=== PATIENT | male | born 1960 | race Caucasian/White ===

== ENCOUNTER → 2018-01-21 | Outpatient (CLI) | payer OTHER ==
[2018-01-21 14:56] VITALS: BP 163/65; PULSE 76; TEMP 98.1; BMI 33.7
--- NOTE | 2018-01-21 16:00 | P.HPBAR ---
Bariatric H&P - History & Physicial H&P Date: 01/21/18 History & Physicial: Visit/CC: four year follow up Patient initial contact: Initial weight: 135.896 kg Initial weight in pounds: 299.60 Height: 5 ft 8 in Initial BMI: 45.5 Last weight: Current weight: 100.698 kg Current weight in pounds: 222.00 Current BMI: 33.7 Floweree body weight (based on NIH guidelines): 69.853 kg Excess body weight loss: 53.2% The patient is a 57 year-old M who presents for Bariatric Assessment. HPI: Last seen Dr. De La Rosa in 2014 had a sleeve. Highest weight was 310 pounds. Lowest weight after surgery is 200 pounds. He is now 222 pounds. No heartburn. She had type II diabetes had stopped. He is now on his blood pressure medications. ABDOMEN: No hernias. PLAN: 1. Two week protein diet. 2. Bariatric lab work. 3. Too much calories and protein Past Medical History Past Medical History: Asthma, GERD/Reflux, Hyperlipidemia, Hypertension, Sleep Apnea/CPAP/BIPAP Additional Past Medical History / Comment(s): Rt femur broken when young, borderline diabetic History of Any Multi-Drug Resistant Organisms: None Reported Past Surgical History: Bariatric Surgery, Cardiac Ablation, Hernia Repair Additional Past Surgical History / Comment(s): For WPW syndrome 1994, bilateral groin hernia repain 1995, surgery on right leg to shorten it, still has plate and screw, gastric sleeve 12/20/2013, thyroid biopsy Past Anesthesia/Blood Transfusion Reactions: No Reported Reaction Past Psychological History: Depression Additional Psychological History / Comment(s): sometimes gets clostraphobic Smoking Status: Former smoker Past Alcohol Use History: None Reported Past Drug Use History: None Reported - Past Family History Daughter(s) Family Medical History: Cancer Mother Family Medical History: Cancer Additional Family Medical History / Comment(s): pancreatic cancer Surgical - Exam Vital Signs Temp Pulse BP 98.1 F 76 163/65 01/21/18 14:47 01/21/18 14:47 01/21/18 14:47 Bariatric Checklist Checklist: Plan: Checklist: EGD: 1. Hiatal hernia: 2. H. Pylori: HgbA1c: Vitamin D: Smoking: Former smoker Primary care physician referral: Psychiatry clearance: Cardiology clearance: Sleep study: Diet journal: VTE risk score: VTE risk level: Rehab needs at discharge:
[2018-01-21 16:33] LABS: HCT 43.8 % (39.0-53.0); MCH 27.1 pg (25.0-35.0); MCV 84.7 fL (80.0-100.0); Mean Platelet Volume 6.6; Platelet Count 193 k/uL (150-450); RBC 5.17 m/uL (4.30-5.90); RDW 12.6 % (11.5-15.5); WBC 9.2 k/uL (3.8-10.6)
[2018-01-21 16:41] LABS: Partial Thromboplastin Time 23.4 sec (22.0-30.0); Prothrombin Time 10.6 sec (9.0-12.0)
[2018-01-22 03:12] LABS: Albumin 4.4 g/dL (3.80-4.90); Albumin/Globulin Ratio 1.91 (1.20-2.10); Globulin 2.3 g/dL (2.1-3.7); LDL Cholesterol,Calculated 107.2 mg/dL (0.0-131.0); Magnesium 1.9 mg/dL (1.5-2.4); Phosphorus 3.7 mg/dL (2.4-5.1); Potassium 3.3 mmol/L (3.5-5.5); Total Bilirubin 0.4 mg/dL (0.3-1.2); Total Protein 6.7 g/dL (6.2-8.2); VLDL Calculation 29.8 mg/dL (5.00-40.00)
[2018-01-22 03:19] LABS: Iron Saturation 18.41 (15.00-50.00)
[2018-01-22 03:26] LABS: Vitamin D 25 Hydroxy 25.7 ng/mL (30.0-100.0)
[2018-01-22 03:38] LABS: Folate, Serum >24.0 ng/mL
[2018-01-22 03:51] LABS: Parathyroid Hormone Intact 82.6 pg/mL (14.0-72.0)
[2018-01-22 04:55] LABS: Hemoglobin A1C 6.5 % (4.0-6.0)
[2018-01-22 14:04] LABS: Zinc, Serum 77 ug/dL (60-130)
[2018-01-23 06:55] LABS: Vitamin A 54 ug/dL (38-106)
[2018-01-23 07:08] LABS: Vitamin B1 85 ug/L (38-122)
== END ==
LOC: BARWHC3 13:55
PROVIDERS: ATTEND Surgery Plastic and Reconstructive Surgery
DX: Z48.815 Encounter for surgical aftercare following surgery on the digestive system (principal); E66.01 Morbid (severe) obesity due to excess calories; E21.1 Secondary hyperparathyroidism, not elsewhere classified; E89.1 Postprocedural hypoinsulinemia; D50.9 Iron deficiency anemia, unspecified; K90.9 Intestinal malabsorption, unspecified; E55.9 Vitamin D deficiency, unspecified; K74.1 Hepatic sclerosis; N19 Unspecified kidney failure; K50.90 Crohn's disease, unspecified, without complications; Z87.891 Personal history of nicotine dependence; Z98.84 Bariatric surgery status
CPT/HCPCS: 84255; 84134; 84425; 80061; 80053; 82607; 82728; 82525; 82746; 83540; 83550; 83735; 84100; 84443; 84590; 84630; 85027; 85610; 85730; 82306; 83970; 83036; 36415; G0463; 99211

== ENCOUNTER 2020-07-14 02:37 | Inpatient (IN) | payer OTHER ==
[2020-07-14] MEDS ORDERED: NITROGLYCERIN SL TABS 0.4 MG TAB SUBLINGUAL PRN (02:57)
[2020-07-14] MEDS ORDERED: ALBUTEROL NEBULIZED 2.5 MG/3 ML INHALATION PRN ×2 (03:00)
--- NOTE | 2020-07-14 07:46 | ED ---
Chest Pain HPI - General Chief Complaint: Chest Pain Stated Complaint: Chest pain Time Seen by Provider: 07/14/20 02:44 Source: patient, EMS Mode of arrival: EMS Limitations: no limitations - History of Present Illness Initial Comments: This patient is a 60-year-old man who presents here as a transfer from [facility]. He had gone there tonight when he had developed some substernal left chest pain while he was using computer. The patient also had some accompanying dyspnea and nausea. When the patient went to the other facility he was started on aspirin, nitroglycerin, heparin, his case was discussed with the radar engineer and he was transferred here with the expectation of having heart catheterization soon. When I interview the patient he is not having any symptoms. His pain has resolved and there is no dyspnea or nausea. MD Complaint: chest pain -: hour(s) Onset: during rest Pain Location: substernal, left chest Pain Radiation: none Severity: moderate Quality: heaviness Consistency: now resolved Improves With: nitroglycerin Worsens With: nothing Anginal Symptoms: nausea, diaphoresis Treatments Prior to Arrival: aspirin, nitroglycerin, oxygen - Related Data Home Medications Medication Instructions Recorded Confirmed NIFEdipine XL [Procardia XL] 60 mg PO DAILY 07/13/13 07/14/20 Albuterol Sulfate [Proair Hfa] 1 - 2 puff INHALATION RT-QID PRN 07/14/20 07/14/20 Disulfiram [Antabuse] 250 mg PO DAILY 07/14/20 07/14/20 Fluticasone Propionate [Flovent 1 - 2 puff INHALATION RT-QID PRN 07/14/20 07/14/20 Hfa 220 mcg] Metoprolol Succinate [Toprol XL] 50 mg PO DAILY 07/14/20 07/14/20 Mirtazapine [Remeron] 30 mg PO HS 07/14/20 07/14/20 hydroCHLOROthiazide [Hydrodiuril] 25 mg PO DAILY 07/14/20 07/14/20 predniSONE See Taper PO DAILY 07/14/20 07/14/20 Previous Rx's Medication Instructions Recorded Atorvastatin Calcium [Lipitor] 40 mg PO HS #0 07/17/20 Losartan Potassium [Cozaar] 100 mg PO DAILY #30 tab 07/17/20 Allergies Allergy/AdvReac Type Severity Reaction Status Date / Time adhesive Allergy Severe blisters Verified 07/14/20 06:44 latex Allergy Dyspnea Verified 07/14/20 06:44 pollen Allergy sneezing/co Uncoded 07/14/20 06:44 ugh Review of Systems ROS Statement: Those systems with pertinent positive or pertinent negative responses have been documented in the HPI. ROS Other: All systems not noted in ROS Statement are negative. Constitutional: Denies: fever, chills Respiratory: Denies: cough, dyspnea Cardiovascular: Reports: chest pain. Denies: palpitations, orthopnea, edema, syncope Gastrointestinal: Denies: abdominal pain, nausea, vomiting Genitourinary: Denies: dysuria, hematuria Skin: Denies: rash Neurological: Denies: headache, weakness, numbness EKG Findings - EKG Results: EKG: sinus rhythm, normal axis, normal ST/T - Blocks, [place], Hypertrophy, ST Abn: AV and intraventricular conduction: right bundle branch block (fixed/intermittent, complete/incomplete) Past Medical History Past Medical History: Asthma, GERD/Reflux, Hyperlipidemia, Hypertension, Sleep Apnea/CPAP/BIPAP Additional Past Medical History / Comment(s): Rt femur broken when young, borderline diabetic History of Any Multi-Drug Resistant Organisms: None Reported Past Surgical History: Bariatric Surgery, Cardiac Ablation, Hernia Repair Additional Past Surgical History / Comment(s): For WPW syndrome 1994, bilateral groin hernia repain 1995, surgery on right leg to shorten it, still has plate and screw, gastric sleeve 12/20/2013, thyroid biopsy Past Anesthesia/Blood Transfusion Reactions: No Reported Reaction Past Psychological History: Depression Smoking Status: Current some day smoker Past Alcohol Use History: Occasional Past Drug Use History: None Reported - Past Family History Daughter(s) Family Medical History: Cancer Mother Family Medical History: Cancer Additional Family Medical History / Comment(s): pancreatic cancer Father Family Medical History: No Reported History Additional Family Medical History / Comment(s): Father lived to be 91 yrs old. General Exam Limitations: no limitations General appearance: alert, in no apparent distress Head exam: Present: atraumatic, normocephalic Eye exam: Present: normal appearance. Absent: scleral icterus, conjunctival injection ENT exam: Present: normal oropharynx Neck exam: Present: normal inspection Respiratory exam: Present: normal lung sounds bilaterally. Absent: respiratory distress, wheezes, rales, rhonchi, stridor Cardiovascular Exam: Present: regular rate, normal rhythm, normal heart sounds. Absent: systolic murmur, diastolic murmur, rubs, gallop GI/Abdominal exam: Present: soft. Absent: distended, tenderness, guarding, rebound, rigid, mass Extremities exam: Present: normal inspection, normal capillary refill. Absent: pedal edema, calf tenderness Back exam: Present: normal inspection. Absent: CVA tenderness (R), CVA tenderness (L) Neurological exam: Present: alert Skin exam: Present: warm, dry, intact, normal color. Absent: rash Course Vital Signs 07/14/20 07/14/20 07/14/20 02:54 04:23 05:52 Temperature 98.2 F Pulse Rate 93 87 71 Respiratory 16 16 16 Rate Blood Pressure 137/92 134/74 O2 Sat by Pulse 99 100 99 Oximetry 07/14/20 07/14/20 06:46 09:28 Temperature Pulse Rate 84 84 Respiratory 17 16 Rate Blood Pressure 167/98 170/130 O2 Sat by Pulse 99 99 Oximetry Disposition Clinical Impression: Acute coronary syndrome Disposition: ADMITTED IP TO THIS HOSP Condition: Good Is patient prescribed a controlled substance at d/c from ED?: No
[2020-07-14] MEDS ORDERED: ALBUTEROL HFA INHALER INHALATION PRN (08:19)
[2020-07-14] MEDS ORDERED: FLUTICASONE 220 MCG INHALER INHALATION SCH (08:19)
[2020-07-14] MEDS ORDERED: FUROSEMIDE 40 MG TAB PO SCH (09:00)
[2020-07-14] MEDS ORDERED: DOXAZOSIN 4 MG TAB PO SCH (09:00)
[2020-07-14] MEDS ORDERED: ATORVASTATIN 40 MG TAB PO SCH ×2 (09:00→21:00)
[2020-07-14] MEDS: METOPROLOL SUCCINATE (ER) 50 MG TAB.ER.24H PO SCH (09:25)
[2020-07-14] MEDS: LOSARTAN 50 MG TAB PO SCH (09:25)
[2020-07-14] MEDS ORDERED: LOSARTAN 50 MG TAB PO STA (10:40)
--- NOTE | 2020-07-14 10:51 | P.CNPUL ---
History of Present Illness Consult date: 07/14/20 Reason for consult: dyspnea, asthma, COPD Chief complaint: chest pain though one day duration History of present illness: this is a pleasant 60-year-old male seen eval examined in the emergency department patient was transferred from [facility] presented over there for 1 day history of left-sided chest pain pain came on when he was using computer due to severity of pain and decided came into the hospital for further evaluation, patient does have a history of eczema and ALLERGIC dermatitis, also has a history of chronic persistent severe asthma has been intermittently on prednisone, patient also has sleep disorder breathing and sleep apnea has been on BiPAP, 4 months ago patient was started on Xolair therapy with that patient not feel significant improvement however, patient was transferred to this institute for cardiac cath and angiogram,+ are normal Review of Systems All systems: negative Past Medical History Past Medical History: Asthma, GERD/Reflux, Hyperlipidemia, Hypertension, Sleep Apnea/CPAP/BIPAP Additional Past Medical History / Comment(s): Rt femur broken when young, borderline diabetic History of Any Multi-Drug Resistant Organisms: None Reported Past Surgical History: Bariatric Surgery, Cardiac Ablation, Hernia Repair Additional Past Surgical History / Comment(s): For WPW syndrome 1994, bilateral groin hernia repain 1995, surgery on right leg to shorten it, still has plate and screw, gastric sleeve 12/20/2013, thyroid biopsy Past Anesthesia/Blood Transfusion Reactions: No Reported Reaction Past Psychological History: Depression Smoking Status: Current some day smoker Past Alcohol Use History: Occasional Past Drug Use History: None Reported - Past Family History Daughter(s) Family Medical History: Cancer Mother Family Medical History: Cancer Additional Family Medical History / Comment(s): pancreatic cancer Medications and Allergies Home Medications Medication Instructions Recorded Confirmed Type NIFEdipine XL [Procardia XL] 60 mg PO DAILY 07/13/13 07/14/20 History Albuterol Sulfate [Proair Hfa] 1 - 2 puff INHALATION RT-QID PRN 07/14/20 07/14/20 History Atorvastatin Calcium [Lipitor] 40 mg PO DAILY 07/14/20 07/14/20 History Disulfiram [Antabuse] 250 mg PO DAILY 07/14/20 07/14/20 History Fluticasone Propionate [Flovent 1 - 2 puff INHALATION RT-QID PRN 07/14/20 07/14/20 History Hfa 220 mcg] Losartan Potassium 50 mg PO DAILY 07/14/20 07/14/20 History Metoprolol Succinate [Toprol XL] 50 mg PO DAILY 07/14/20 07/14/20 History Mirtazapine [Remeron] 30 mg PO HS 07/14/20 07/14/20 History hydroCHLOROthiazide [Hydrodiuril] 25 mg PO DAILY 07/14/20 07/14/20 History predniSONE See Taper PO DAILY 07/14/20 07/14/20 History Allergies Allergy/AdvReac Type Severity Reaction Status Date / Time adhesive Allergy Severe blisters Verified 07/14/20 06:44 latex Allergy Dyspnea Verified 07/14/20 06:44 pollen Allergy sneezing/co Uncoded 07/14/20 06:44 ugh Physical Exam Vitals: Vital Signs Temp Pulse Resp BP Pulse Ox 07/14/20 09:28 84 16 170/130 99 07/14/20 06:46 84 17 167/98 99 07/14/20 05:52 71 16 134/74 99 07/14/20 04:23 87 16 100 07/14/20 02:54 98.2 F 93 16 137/92 99 Intake and Output 07/13/20 07/14/20 07/14/20 22:59 06:59 14:59 Other: Weight 113.398 kg - Constitutional General appearance: average body habitus, cooperative, disheveled - EENT Eyes: EOMI, PERRLA ENT: normal oropharynx Ears: bilateral: normal - Neck Neck: normal ROM Carotids: bilateral: upstroke normal Thyroid: bilateral: normal size - Respiratory Respiratory: bilateral: CTA - Cardiovascular Rhythm: regular Heart sounds: normal: S1, S2 - Gastrointestinal General gastrointestinal: normal bowel sounds, soft - Integumentary chronic rash extensor aspect of the forearm bilaterally - Neurologic Neurologic: CNII-XII intact - Musculoskeletal Musculoskeletal: gait normal, generalized weakness, strength equal bilaterally - Psychiatric Psychiatric: A&O x's 3, appropriate affect, intact judgment & insight Assessment and Plan Assessment: left-sided chest pain Chronic persistent asthma not in exacerbation Eczema ALLERGIC dermatitis Sleep disorder breathing and sleep apnea Morbid obesity Remote history of intermittent smoking Plan: obtain follow-up chest X Continue bronchodilator Further evaluation as per cardiovascular services Time with Patient: Greater than 30
--- NOTE | 2020-07-14 12:57 | P.HPIM ---
History of Present Illness H&P Date: 07/14/20 HISTORY OF PRESENT ILLNESS This is a 60-year-old male patient of Dr. CHRISTOPHER Neville with past medical history of moderate persistent asthma on Xolair, hypertension, hyperlipidemia, gastroesophageal reflux disease, obstructive sleep apnea with BiPAP, history of morbid obesity status post laparoscopic sleeve gastrectomy, tobacco use and dependence, history of Medbw-Efdeblhqu-Ushon syndrome, alcohol abuse. Patient initially presented to [facility] with substernal left-sided chest pain while he was using a computer doing a zoom call and checking his email. He describes the pain as an elephant on his chest. He denies any radiation. He states he had some mild shortness of breath. Patient has been on prednisone tapering dose for eczema on his knees, ankles, forearms and elbows. Lesions appear to be more of a psoriatic-type lesions. At [facility], patient was started on aspirin, nitroglycerin and heparin and based on quick print operator recommendations, patient was transferred to [facility] for heart catheterization. At the time of evaluation, patient is chest pain-free, no dyspnea and no nausea. Patient was found to be afebrile, heart rate 93, blood pressure 137/92, pulse ox 99% on room air. Repeat troponin 0.014. Coronavirus not detected. Lab work performed at [facility] revealed WBC of 13.1, hemoglobin 15.4, platelet count 269. INR 0.94. Sodium 140, potassium 3.4, chloride 103, CO2 19, BUN 31 and creatinine 1.15. Troponin less than 0.03. Chest x-ray showed no acute cardiopulmonary process. REVIEW OF SYSTEMS Constitutional: No fever, no chills, no night sweats. No weight change. No weakness, fatigue or lethargy. No daytime sleepiness. EENT: No headache. No blurred vision or double vision, no loss of vision. No loss of Hearing, no ringing in the ears, no dizziness. No nasal drainage or congestion. No epistaxis. No sore throat. Lungs: No shortness of breath, cough, no sputum production. No wheezing. Cardiovascular: No chest pain, no lower extremity edema. No palpitations. No paroxysmal nocturnal dyspnea. No orthopnea. No lightheadedness or dizziness. No syncopal episodes. Abdominal: No abdominal pain. No nausea, vomiting. No diarrhea. No const ipation. No bloody or tarry stools.. No loss of appetite. Genitourinary: No dysuria, increased frequency, urgency. No urinary retention. Musculoskeletal: No myalgias. No muscle weakness, no gait dysfunction, no frequent falls. No back pain. No neck pain. Integumentary: No wounds, reported chronic lesions. No rash or pruritus. No unusual bruising. No change in hair or nails. Neurologic: No aphasia. No facial droop. No change in mentation. No head injury. No headache. No paralysis. No paresthesia. Psychiatric: No depression. No anxiety. No mood swings. Endocrine: No abnormal blood sugars. No weight change. No excessive sweating or thirst. No cold intolerance. SOCIAL HISTORY Patient is a smoker of one pack per week. He states he drinks 1 pint of alcohol per day. Noted Antabuse on his medication list but he states he has not been taking this. 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 PHYSICAL EXAMINATION Gen: This is a 60-year-old male, patient is resting in bed and appears to be comfortable and in no acute distress. HEENT: Head is atraumatic, normocephalic. Pupils equal, round. Sclerae is anicteric. NECK: Supple. No JVD. No lymphadenopathy. No thyromegaly. LUNGS: Clear to auscultation. No wheezes or rhonchi. No intercostal retractions. HEART: Regular rate and rhythm. No murmur. ABDOMEN: Soft. Bowel sounds are present. No masses. No tenderness. EXTREMITIES: No pedal edema. No calf tenderness. SKIN: Scaling lesions noted to the bilateral forearms, bilateral elbows, bilateral ankles and bilateral knees. NEUROLOGICAL: Patient is awake, alert and oriented x3. Cranial nerves 2 through 12 are grossly intact. ASSESSMENT AND PLAN 1. Chest pain, rule out acute coronary syndrome. Consult with cardiology. Patient's been transferred from [facility] for heart catheterization. Echocardiogram has been ordered. Continue aspirin 325 mg daily, Toprol-XL 50 mg daily. 2. Hypertension. Continue losartan 50 mg daily, Procardia XL 60 mg daily, Toprol-XL 50 mg daily. 3. Hyperlipidemia. Continue Lipitor 40 mg daily. 4. Chronic persistent asthma without exacerbation. Continue albuterol inhaler or nebulizer treatment as needed for shortness of breath, Flovent 2 puffs twice daily. Repeat chest x-ray. 5. Gastroesophageal reflux disease and GI prophylaxis. Protonix. 6. Obstructive sleep apnea. 7. Tobacco use and dependence. 8. Alcohol abuse. 9. History of Ytyoh-Rvghtmrjx-Fwjnu syndrome. 10. Eczema. Patient has been on prednisone taper. 11. DVT prophylaxis. Early ambulation, BRIGID hose and SCDs. Patient will be admitted to the hospital for a minimum of 2 night stay. DISCHARGE PLAN Home. Impression and plan of care have been directed as dictated by the signing physician. Richelle Andre nurse practitioner acting as scribe for signing physician. Past Medical History Past Medical History: Asthma, GERD/Reflux, Hyperlipidemia, Hypertension, Sleep Apnea/CPAP/BIPAP Additional Past Medical History / Comment(s): Rt femur broken when young, borderline diabetic History of Any Multi-Drug Resistant Organisms: None Reported Past Surgical History: Bariatric Surgery, Cardiac Ablation, Hernia Repair Additional Past Surgical History / Comment(s): For WPW syndrome 1994, bilateral groin hernia repain 1995, surgery on right leg to shorten it, still has plate and screw, gastric sleeve 12/20/2013, thyroid biopsy Past Anesthesia/Blood Transfusion Reactions: No Reported Reaction Past Psychological History: Depression Smoking Status: Current some day smoker Past Alcohol Use History: Occasional Past Drug Use History: None Reported - Past Family History Daughter(s) Family Medical History: Cancer Mother Family Medical History: Cancer Additional Family Medical History / Comment(s): pancreatic cancer Father Family Medical History: No Reported History Additional Family Medical History / Comment(s): Father lived to be 91 yrs old. Medications and Allergies Home Medications Medication Instructions Recorded Confirmed Type NIFEdipine XL [Procardia XL] 60 mg PO DAILY 07/13/13 07/14/20 History Albuterol Sulfate [Proair Hfa] 1 - 2 puff INHALATION RT-QID PRN 07/14/20 07/14/20 History Atorvastatin Calcium [Lipitor] 40 mg PO DAILY 07/14/20 07/14/20 History Disulfiram [Antabuse] 250 mg PO DAILY 07/14/20 07/14/20 History Fluticasone Propionate [Flovent 1 - 2 puff INHALATION RT-QID PRN 07/14/20 07/14/20 History Hfa 220 mcg] Losartan Potassium 50 mg PO DAILY 07/14/20 07/14/20 History Metoprolol Succinate [Toprol XL] 50 mg PO DAILY 07/14/20 07/14/20 History Mirtazapine [Remeron] 30 mg PO HS 07/14/20 07/14/20 History hydroCHLOROthiazide [Hydrodiuril] 25 mg PO DAILY 07/14/20 07/14/20 History predniSONE See Taper PO DAILY 07/14/20 07/14/20 History Allergies Allergy/AdvReac Type Severity Reaction Status Date / Time adhesive Allergy Severe blisters Verified 07/14/20 06:44 latex Allergy Dyspnea Verified 07/14/20 06:44 pollen Allergy sneezing/co Uncoded 07/14/20 06:44 ugh Physical Exam Vitals: Vital Signs Temp Pulse Resp BP Pulse Ox 07/14/20 06:46 84 17 167/98 99 07/14/20 05:52 71 16 134/74 99 07/14/20 04:23 87 16 100 07/14/20 02:54 98.2 F 93 16 137/92 99 Intake and Output 07/13/20 07/14/20 07/14/20 22:59 06:59 14:59 Other: Weight 113.398 kg
--- NOTE | 2020-07-14 13:16 | ECHOF ---
Referral Reason:LV function MEASUREMENTS -------- HEIGHT: 172.7 cm WEIGHT: 113.4 kg BP: 188/122 IVSd: 1.9 cm (0.6 - 1.1) LVIDd: 4.5 cm (3.9 - 5.3) LVPWd: 2.0 cm (0.6 - 1.1) EDV(Teich): 92 ml IVSs: 2.5 cm LVIDs: 3.0 cm LVPWs: 2.0 cm %IVS Thck: 27 % ESV(Teich): 35 ml EF(Teich): 62 % %FS: 33 % SV(Teich): 57 ml LA Diam: 3.9 cm (2.7 - 3.8) RVIDd: 3.6 cm (< 3.3) LALs A4C: 5.6 cm LAAs A4C: 15.1 cm LAESV A-L A4C: 34 ml LAESV MOD A4C: 33 ml LALs A2C: 5.4 cm LAAs A2C: 14.4 cm LAESV A-L A2C: 32 ml LAESV MOD A2C: 30 ml LAESV(A-L): 34 ml LAESV Index (A-L): 15.01 ml/m Ao Diam: 4.2 cm (2.0 - 3.7) AV Cusp: 2.4 cm (1.5 - 2.6) EPSS: 0.6 cm MV E Tin: 0.71 m/s MV DecT: 275 ms MV Dec Calloway: 2.6 m/s MV A Tin: 0.89 m/s MV E/A Ratio: 0.79 MV PHT: 80 ms AV Vmax: 1.80 m/s AV maxP.95 mmHg TR Vmax: 2.90 m/s TR maxP.65 mmHg RAP: 5.00 mmHg RVSP: 38.65 mmHg MV EF SLOPE: 115.19 mm/s (70 - 150) MV EXCURSION: 19.18 mm (> 18.000) FINDINGS -------- Sinus rhythm. This was a technically adequate study. The left ventricular size is normal. There is severe concentric left ventricular hypertrophy. Ove rall left ventricular systolic function is normal with, an EF between 65 - 70 %. The right ventricle is mildly enlarged. Normal LA size by volume 22+/-6 ml/m2. The right atrium is normal in size. Interatrial and interventricular septum intact. Aortic valve is trileaflet and is mildly thickened. The mitral valve is normal. Mild tricuspid regurgitation present. There is mild pulmonary hypertension. The right ventricular systolic pressure, as measured by Doppler, is 38.65mmHg. Trace/mild (physiologic) pulmonic regurgitation. The aortic root is dilated measuring 4.2cm. Normal inferior vena cava with normal inspiratory collapse consistent with estimated right atrial pre ssure of 5 mmHg. There is no pericardial effusion. CONCLUSIONS -------- 1. The left ventricular size is normal. 2. There is severe concentric left ventricular hypertrophy. 3. Overall left ventricular systolic function is normal with, an EF between 65 - 70 %. 4. The right ventricle is mildly enlarged. 5. Aortic valve is trileaflet and is mildly thickened. 6. Mild tricuspid regurgitation present. 7. There is mild pulmonary hypertension. 8. The right ventricular systolic pressure, as measured by Doppler, is 38.65mmHg. 9. Trace/mild (physiologic) pulmonic regurgitation. 10. The aortic root is dilated measuring 4.2cm. 11. There is no pericardial effusion. DEPUTY SHERIFF K9 HANDLER: Caron Sandoval RDCS
[2020-07-14] MEDS: SODIUM CHLORIDE 0.9% 1,000 ML IV SCH (19:10)
[2020-07-14] MEDS: ALBUTEROL NEBULIZED 2.5 MG/3 ML INHALATION PRN (19:14)
[2020-07-14] MEDS: FLUTICASONE 220 MCG INHALER INHALATION SCH ×2 (19:15→20:32)
--- NOTE | 2020-07-14 21:14 | CONS ---
MARIELY Winters is a 60-year-old gentleman with history of hypertension and COPD who presented to [facility] Emergency Room complaining of chest pain. He describes it as moderate precordial chest pressure without definite radiation to neck, arm or back, unassociated with diaphoresis and unrelated to exertion. It came on at rest. Apparently responded to sublingual nitroglycerin and it got somewhat better while he was in the emergency room. His EKG revealed sinus rhythm with right bundle branch block and nonspecific ST-T wave changes. Had 1 set of troponin in the ER in the [facility] that was negative. He was transferred over to [facility] where he had 2 further sets of troponins that are negative and a coronavirus test that is unremarkable. At the time of my evaluation patient appears comfortable at rest and is free of symptoms. The patient states that he drinks regularly and had a pint of whiskey yesterday. PAST MEDICAL HISTORY: Significant for hypertension, COPD, and dyslipidemia. Denies coronary artery disease or congestive heart failure. MEDICATIONS: Medications at home included Lipitor, prednisone, Remeron, Toprol, losartan, HydroDIURIL, albuterol, Procardia and ( ). ALLERGIES: LATEX AND POLLEN. FAMILY HISTORY: Negative for premature coronary artery disease. SOCIAL HISTORY: Significant for EtOH abuse and smoking. REVIEW OF SYSTEMS: HEENT is unremarkable. CARDIAC: As described above. RESPIRATORY: Negative. GI: Negative. : Negative. ALLERGY/IMMUNOLOGY: Negative. SKIN: Negative. MUSCULOSKELETAL: Negative. ENDOCRINE: Negative. DERM: Negative. CONSTITUTIONAL: Negative. ONCOLOGICAL: Negative. PARTNERSHIP MANAGER: Negative. Rest of the system review is not relevant. EXAM: Patient's heart rate is 84 beats per minute, blood pressure is 180/122, respiratory rate is 18, O2 saturation 99% on room air. There is no jugular venous distention. Carotid upstroke is normal. There is no bruit. Chest exam reveals good air entry bilaterally. Heart exam reveals first and second heart sounds. No gallop. No murmur. No rub. Abdomen is soft, nontender. Examination of extremities did not reveal any edema. Peripheral pulses are palpable. ASSESSMENT: 1. Precordial chest pain, rule out CAD. 2. Severe uncontrolled hypertension. 3. ETOH abuse. PLAN: We first of all have to control this patient's blood pressure optimally. Obtain a 2D echo to assess his LV function. It is unclear if the chest pain is related to underlying ischemic heart disease or if it was related to the ETOH abuse and excessive alcohol consumption yesterday, but he does have risk factors and we certainly have to evaluate for ischemic heart disease. We will obtain a Lexiscan on Friday and if this shows ischemia, consider cardiac catheterization. If he has further episodes of chest pain, we may have to consider cardiac catheterization prior to that. MMODL / IJN: [id number] /
[2020-07-14] MEDS: MIRTAZAPINE 15 MG TAB PO SCH (21:47)
[2020-07-15] MEDS: SODIUM CHLORIDE 0.9% 1,000 ML IV SCH (02:07)
--- NOTE | 2020-07-15 07:35 | XR ---
EXAMINATION TYPE: XR chest 1V portable DATE OF EXAM: 07/15/2020 COMPARISON: None HISTORY: Chest pain TECHNIQUE: Single frontal view of the chest is obtained. FINDINGS: There is no focal air space opacity, pleural effusion, or pneumothorax seen. The cardiac silhouette size is within normal limits. The osseous structures are intact. IMPRESSION: No acute process.
[2020-07-15] MEDS: FLUTICASONE 220 MCG INHALER INHALATION SCH ×2 (07:36→19:28)
[2020-07-15] MEDS: METOPROLOL SUCCINATE (ER) 50 MG TAB.ER.24H PO SCH (08:25)
[2020-07-15] MEDS: PANTOPRAZOLE 40 MG TABLET PO SCH (08:26)
[2020-07-15] MEDS: LOSARTAN 50 MG TAB PO SCH (08:26)
[2020-07-15] MEDS ORDERED: ASPIRIN 325 MG TAB PO SCH (09:00)
--- NOTE | 2020-07-15 10:02 | P.PN ---
Subjective Progress Note Date: 07/15/20 Principal diagnosis: left-sided chest pain Chronic persistent asthma not in exacerbation Eczema ALLERGIC dermatitis Sleep disorder breathing and sleep apnea Morbid obesity Remote history of intermittent smoking 07/15/2020, patient seen eval examined during the rounds labs reviewed medications reviewed care plan discussed, respiratory status remains stable denies any chest pain breathing comfortably, no wheezing is present, evaluated his skin extensively patient has lesions on the extensor surface, some flakes are silvery cracks in weeping very elderly have been seen, she has a lesion in the back of the neck, tailbone area in the back, extensor surface of the hands a nd fingers, bilateral elbows and extensor surfaces of the forearms, very much suggestive of psoriasis patient has not seen a statistician applied advised strongly to see a statistician applied as outpatient, cardiology has evaluated the patient patient is recommended for a stress test early next week, patient expressed his desire to go home,from pulmonary standpoint however patient patient has chronic persistent asthma which is stable and in not in exacerbation, Troches are normal, d-dimer within normal limit, chest x-ray no acute process identified, this is a pleasant 60-year-old male seen eval examined in the emergency department patient was transferred from [facility] presented over there for 1 day history of left-sided chest pain pain came on when he was using computer due to severity of pain and decided came into the hospital for further evaluation, patient does have a history of eczema and ALLERGIC dermatitis, also has a history of chronic persistent severe asthma has been intermittently on prednisone, patient also has sleep disorder breathing and sleep apnea has been on BiPAP, 4 months ago patient was started on Xolair therapy with that patient not feel significant improvement however, patient was transferred to this institute for cardiac cath and angiogram,+ are normal Objective - Vital Signs Vital signs: Vital Signs Temp 98.4 F 07/15/20 07:00 Pulse 74 07/15/20 08:00 Resp 18 07/15/20 08:00 BP 135/82 07/15/20 07:00 Pulse Ox 98 07/15/20 07:00 Intake & Output 07/14/20 07/15/20 07/15/20 18:59 06:59 18:59 Output Total 0 Balance 0 Weight 113.398 kg Output: Urine 0 Other: Voiding Method Toilet Toilet Toilet # Voids 1 2 # Bowel Movements 1 - Exam - Constitutional General appearance: average body habitus, cooperative, disheveled - EENT Eyes: EOMI, PERRLA ENT: normal oropharynx Ears: bilateral: normal - Neck Neck: normal ROM Carotids: bilateral: upstroke normal Thyroid: bilateral: normal size - Respiratory Respiratory: bilateral: CTA - Cardiovascular Rhythm: regular Heart sounds: normal: S1, S2 - Gastrointestinal General gastrointestinal: normal bowel sounds, soft - Integumentary chronic rash extensor aspect of the forearm bilaterally - Neurologic Neurologic: CNII-XII intact - Musculoskeletal Musculoskeletal: gait normal, generalized weakness, strength equal bilaterally - Psychiatric Psychiatric: A&O x's 3, appropriate affect, intact judgment & insight Assessment and Plan Assessment: left-sided chest pain Chronic persistent asthma not in exacerbation Eczema ALLERGIC dermatitis Sleep disorder breathing and sleep apnea Morbid obesity Remote history of intermittent smoking Plan: obtain follow-up chest X Continue bronchodilator Further evaluation as per cardiovascular services Time with Patient: Greater than 30
[2020-07-15 10:05] LABS: Chol/HDL Ratio 2.11; LDL Cholesterol,Calculated 69.8 mg/dL (0.0-131.0); VLDL Calculation 19.2 mg/dL (5.00-40.00)
--- NOTE | 2020-07-15 15:36 | P.PN ---
Subjective Progress Note Date: 07/15/20 Physical pleasant 60-year-old gentleman with a history of hypertension, sleep apnea and asthma. He initially presented to [facility] emergency Department complaining of chest discomfort. He described it as a chest pressure without radiation with some mild diaphoresis and mild shortness of breath. It came on at rest. EKG revealed sinus mechanism with right bundle branch block and nonspecific ST-T wave changes. Troponins have been negative 3. He was transferred to [facility] for further evaluation and treatment. Patient does have a history of drinking regularly and did have a complaint of whiskey the day before presentation. Blood pressure was elevated on admission but he had apparently not taking his medications that day. Blood pressure is better controlled today. He underwent echocardiogram with Doppler study which showed severe concentric LVH, normal LV systolic function with an ejection fraction between 65-70%, mildly enlarged RV, mild TR and mild pulmonary hypertension with an aortic root measuring 4.2 cm. Upon examination, patient is sitting comfortably in a chair. He has no further complaints of chest discomfort. His breathing is stable. He has no edema, orthopnea or PND. He's had no palpitations, dizziness or lightheadedness. Objective - Vital Signs Vital signs: Vital Signs Temp 98.4 F 07/15/20 07:00 Pulse 74 07/15/20 08:00 Resp 18 07/15/20 08:00 BP 135/82 07/15/20 07:00 Pulse Ox 98 07/15/20 07:00 Intake & Output 07/14/20 07/15/20 07/15/20 18:59 06:59 18:59 Output Total 0 Balance 0 Weight 113.398 kg Output: Urine 0 Other: Voiding Method Toilet Toilet Toilet # Voids 1 2 # Bowel Movements 1 - Exam PHYSICAL EXAMINATION: HEENT: Head is atraumatic, normocephalic. Pupils equal, round. Neck is supple. There is no elevated jugular venous pressure. HEART EXAMINATION: Heart sounds regular, S1 and S2 normal. No murmur or gallop heard. CHEST EXAMINATION: Lungs are clear to auscultation. No chest wall tenderness is noted on palpation or with deep breathing. ABDOMEN: Soft, obese, nontender. Bowel sounds are heard. No organomegaly noted. EXTREMITIES: 2+ peripheral pulses with no evidence of peripheral edema and no calf tenderness noted. NEUROLOGIC patient is awake, alert and oriented x3. . - Labs Labs: Abnormal Lab Results - Last 24 Hours (Table) 07/15/20 Range/Units 05:43 HDL Cholesterol 80.0 H (40.0-60.0) mg/dL Assessment and Plan Assessment: #1 symptoms of chest pressure with mild diaphoresis and mild shortness of breath, troponins of a negative 3 echocardiogram shows no evidence of segmental wall motion abnormalities #2 uncontrolled hypertension #3 EtOH abuse #4 obstructive sleep apnea #5 asthma Plan: From cardiology's perspective, medications reviewed we'll continue the same at this time. Plan for Lexiscan MPI on Friday. SOLAR APPLICATIONS DEVELOPMENT ENGINEER note has been reviewed, I agree with a documented findings and plan of care. Patient was seen and examined.
[2020-07-15] MEDS: ALBUTEROL NEBULIZED 2.5 MG/3 ML INHALATION PRN (19:29)
[2020-07-15] MEDS: MIRTAZAPINE 15 MG TAB PO SCH (22:10)
[2020-07-16] MEDS: SODIUM CHLORIDE 0.9% 1,000 ML IV SCH (02:35)
[2020-07-16] MEDS: FLUTICASONE 220 MCG INHALER INHALATION SCH ×2 (07:56→21:02)
[2020-07-16] MEDS: PANTOPRAZOLE 40 MG TABLET PO SCH (08:37)
[2020-07-16] MEDS: ASPIRIN 81 MG PO SCH (08:37)
[2020-07-16] MEDS: METOPROLOL SUCCINATE (ER) 50 MG TAB.ER.24H PO SCH (08:38)
[2020-07-16] MEDS: LOSARTAN 50 MG TAB PO SCH (08:38)
--- NOTE | 2020-07-16 08:44 | P.PN ---
Subjective Progress Note Date: 07/15/20 HISTORY OF PRESENT ILLNESS This is a 60-year-old male patient of Dr. CHRISTOPHER Neville with past medical history of moderate persistent asthma on Xolair, hypertension, hyperlipidemia, gastroesophageal reflux disease, obstructive sleep apnea with BiPAP, history of morbid obesity status post laparoscopic sleeve gastrectomy, tobacco use and dependence, history of Ksoey-Uupkmjpby-Ibxoa syndrome, alcohol abuse. Patient initially presented to [facility] with substernal left-sided chest pain while he was using a computer doing a zoom call and checking his email. He describes the pain as an elephant on his chest. He denies any radiation. He states he had some mild shortness of breath. Patient has been on prednisone tapering dose for eczema on his knees, ankles, forearms and elbows. Lesions appear to be more of a psoriatic-type lesions. At [facility], edna adorno was started on aspirin, nitroglycerin and heparin and based on make ready worker recommendations, patient was transferred to [facility] for heart catheterization. At the time of evaluation, patient is chest pain-free, no dyspnea and no nausea. Patient was found to be afebrile, heart rate 93, blood pressure 137/92, pulse ox 99% on room air. Repeat troponin 0.014. Coronavirus not detected. Lab work performed at [facility] revealed WBC of 13.1, hemoglobin 15.4, platelet count 269. INR 0.94. Sodium 140, potassium 3.4, chloride 103, CO2 19, BUN 31 and creatinine 1.15. Troponin less than 0.03. Chest x-ray showed no acute cardiopulmonary process. 07/15: Patient states that he is feeling much better. No chest pain. He has been seen by Cardiology with plan for stress test on Friday. He has been afebrile, HR 70, 137/92, PO 98% on RA. Echocardiogram reveals EF 65-70%, severe concentric left ventricular hypertrophy, mild tricuspid regurgitation, mild pulmonary htn. Patient has been seen by cardiology and scheduled for stress test on Friday. REVIEW OF SYSTEMS Constitutional: No fever, no chills, no night sweats. No weight change. No weakness, fatigue or lethargy. No daytime sleepiness. EENT: No headache. No blurred vision or double vision, no loss of vision. No loss of Hearing, no ringing in the ears, no dizziness. No nasal drainage or congestion. No epistaxis. No sore throat. Lungs: No shortness of breath, cough, no sputum production. No wheezing. Cardiovascular: No chest pain, no lower extremity edema. No palpitations. No paroxysmal nocturnal dyspnea. No orthopnea. No lightheadedness or dizziness. No syncopal episodes. Abdominal: No abdominal pain. No nausea, vomiting. No diarrhea. No constipation. No bloody or tarry stools.. No loss of appetite. Genitourinary: No dysuria, increased frequency, urgency. No urinary retention. Musculoskeletal: No myalgias. No muscle weakness, no gait dysfunction, no frequent falls. No back pain. No neck pain. Integumentary: No wounds, reported chronic lesions. No rash or pruritus. No unusual bruising. No change in hair or nails. Neurologic: No aphasia. No facial droop. No change in mentation. No head injury. No headache. No paralysis. No paresthesia. Psychiatric: No depression. No anxiety. No mood swings. Endocrine: No abnormal blood sugars. No weight change. No excessive sweating or thirst. No cold intolerance. PHYSICAL EXAMINATION Gen: This is a 60-year-old male, patient is resting in bed and appears to be comfortable and in no acute distress. HEENT: Head is atraumatic, normocephalic. Pupils equal, round. Sclerae is anicteric. NECK: Supple. No JVD. No lymphadenopathy. No thyromegaly. LUNGS: Clear to auscultation. No wheezes or rhonchi. No intercostal retractions. HEART: Regular rate and rhythm. No murmur. ABDOMEN: Soft. Bowel sounds are present. No masses. No tenderness. EXTREMITIES: No pedal edema. No calf tenderness. SKIN: Scaling lesions noted to the bilateral forearms, bilateral elbows, bilateral ankles and bilateral knees. NEUROLOGICAL: Patient is awake, alert and oriented x3. Cranial nerves 2 through 12 are grossly intact. ASSESSMENT AND PLAN 1. Chest pain, rule out acute coronary syndrome. Consult with cardiology appreciated. Patient's been transferred from [facility] for heart catheterization. Echocardiogram has been ordered. Continue aspirin 325 mg daily, Toprol-XL 50 mg daily. Scheduled for stress test on Friday. 2. Hypertension. Continue losartan 50 mg daily, Procardia XL 60 mg daily, Toprol-XL 50 mg daily. 3. Hyperlipidemia. Continue Lipitor 40 mg daily. 4. Chronic persistent asthma without exacerbation. Continue albuterol inhaler or nebulizer treatment as needed for shortness of breath, Flovent 2 puffs twice daily. Repeat chest x-ray. 5. Gastroesophageal reflux disease and GI prophylaxis. Protonix. 6. Obstructive sleep apnea. 7. Tobacco use and dependence. 8. Alcohol abuse. 9. History of Dlbhd-Diclgyvbe-Lsgca syndrome. 10. Psoriasis. Patient has been on prednisone taper. 11. DVT prophylaxis. Early ambulation, BRIGID hose and SCDs. DISCHARGE PLAN Home. Impression and plan of care have been directed as dictated by the signing physician. Richelle Andre nurse practitioner acting as scribe for signing physician. Objective - Vital Signs Vital signs: Vital Signs Temp 98.1 F 07/15/20 02:00 Pulse 70 07/15/20 02:00 Resp 18 07/15/20 02:00 BP 137/92 07/15/20 02:00 Pulse Ox 98 07/15/20 02:00 Intake & Output 07/14/20 07/15/20 07/15/20 18:59 06:59 18:59 Output Total 0 Balance 0 Weight 113.398 kg Output: Urine 0 Other: Voiding Method Toilet Toilet # Voids 1 2 # Bowel Movements 1
[2020-07-16] MEDS: hydroCHLOROthiazide 25 MG TAB PO SCH (10:12)
--- NOTE | 2020-07-16 10:47 | P.PN ---
Subjective Progress Note Date: 07/16/20 Physical pleasant 60-year-old gentleman with a history of hypertension, sleep apnea and asthma. He initially presented to [facility] emergency Department complaining of chest discomfort. He described it as a chest pressure without radiation with some mild diaphoresis and mild shortness of breath. It came on at rest. EKG revealed sinus mechanism with right bundle branch block and nonspecific ST-T wave changes. Troponins have been negative 3. He was transferred to [facility] for further evaluation and treatment. Patient does have a history of drinking regularly and did have a complaint of whiskey the day before presentation. Blood pressure was elevated on admission but he had apparently not taking his medications that day. Blood pressure is better controlled today. He underwent echocardiogram with Doppler study which showed severe concentric LVH, normal LV systolic function with an ejection fraction between 65-70%, mildly enlarged RV, mild TR and mild pulmonary hypertension with an aortic root measuring 4.2 cm. Upon examination, patient is sitting comfortably in a chair. He has no further complaints of chest discomfort. His breathing is stable. He has no edema, orthopnea or PND. He's had no palpitations, dizziness or lightheadedness. 07/16/20 The patient was seen and examined this morning sitting up in a chair at the bedside. He's had no further complaints of chest discomfort. His breathing is stable. Blood pressure this morning is elevated at 160/115. His home dose of hydrochlorothiazide has not been resumed. Objective - Vital Signs Vital signs: Vital Signs Temp 97.6 F 07/16/20 07:00 Pulse 77 07/16/20 08:00 Resp 16 07/16/20 08:00 BP 160/115 07/16/20 07:00 Pulse Ox 98 07/16/20 07:00 Intake & Output 07/15/20 07/16/20 07/16/20 18:59 06:59 18:59 Intake Total 300 Balance 300 Intake: Oral 300 Other: Voiding Method Toilet Toilet Toilet # Voids 3 2 - Exam PHYSICAL EXAMINATION: HEENT: Head is atraumatic, normocephalic. Pupils equal, round. Neck is supple. There is no elevated jugular venous pressure. HEART EXAMINATION: Heart sounds regular, S1 and S2 normal. No murmur or gallop heard. CHEST EXAMINATION: Lungs are clear to auscultation. No chest wall tenderness is noted on palpation or with deep breathing. ABDOMEN: Soft, obese, nontender. Bowel sounds are heard. No organomegaly noted. EXTREMITIES: 2+ peripheral pulses with no evidence of peripheral edema and no calf tenderness noted. NEUROLOGIC patient is awake, alert and oriented x3. . Assessment and Plan Assessment: #1 symptoms of chest pressure with mild diaphoresis and mild shortness of breath, troponins of a negative 3 echocardiogram shows no evidence of segmental wall motion abnormalities #2 uncontrolled hypertension #3 EtOH abuse #4 obstructive sleep apnea #5 asthma Plan: From cardiology's perspective, we will resume hydrochlorothiazide 25 mg by mouth daily. Plan for Lexiscan MPI tomorrow. Further recommendations to follow. NEWSPAPER OR PERIODICAL EDITOR note has been reviewed, I agree with a documented findings and plan of care. Patient was seen and examined.
--- NOTE | 2020-07-16 10:48 | P.PN ---
Subjective Progress Note Date: 07/16/20 HISTORY OF PRESENT ILLNESS This is a 60-year-old male patient of Dr. CHRISTOPHER Neville with past medical history of moderate persistent asthma on Xolair, hypertension, hyperlipidemia, gastroesophageal reflux disease, obstructive sleep apnea with BiPAP, history of morbid obesity status post laparoscopic sleeve gastrectomy, tobacco use and dependence, history of Yfmry-Iyxvmeoje-Hevqm syndrome, alcohol abuse. Patient initially presented to [facility] with substernal left-sided chest pain while he was using a computer doing a zoom call and checking his email. He describes the pain as an elephant on his chest. He denies any radiation. He states he had some mild shortness of breath. Patient has been on prednisone tapering dose for eczema on his knees, ankles, forearms and elbows. Lesions appear to be more of a psoriatic-type lesions. At [facility], edna adorno was started on aspirin, nitroglycerin and heparin and based on log stacker operator recommendations, patient was transferred to [facility] for heart catheterization. At the time of evaluation, patient is chest pain-free, no dyspnea and no nausea. Patient was found to be afebrile, heart rate 93, blood pressure 137/92, pulse ox 99% on room air. Repeat troponin 0.014. Coronavirus not detected. Lab work performed at [facility] revealed WBC of 13.1, hemoglobin 15.4, platelet count 269. INR 0.94. Sodium 140, potassium 3.4, chloride 103, CO2 19, BUN 31 and creatinine 1.15. Troponin less than 0.03. Chest x-ray showed no acute cardiopulmonary process. 07/15: Patient states that he is feeling much better. No chest pain. He has been seen by Cardiology with plan for stress test on Friday. He has been afebrile, HR 70, 137/92, PO 98% on RA. Echocardiogram reveals EF 65-70%, severe concentric left ventricular hypertrophy, mild tricuspid regurgitation, mild pulmonary htn. 07/16: Patient denies chest pain, no shortness of breath, no lightheadedness, no dizziness. Patient is waiting for stress test scheduled for Friday. His psoriatic lesions worsening. Long disscusion with the patient and his need to follow-up with dermatology and also possibility of cirrhotic arthritis as patient is complaining of knee pain but had a recent fall. He has been afebrile, heart rate 77, blood pressure 160/115 and hydrochlorothiazide was resumed. Repeat chest x-ray shows no acute process. REVIEW OF SYSTEMS Constitutional: No fever, no chills, no night sweats. No weight change. No weakness, fatigue or lethargy. No daytime sleepiness. EENT: No headache. No blurred vision or double vision, no loss of vision. No loss of Hearing, no ringing in the ears, no dizziness. No nasal drainage or congestion. No epistaxis. No sore throat. Lungs: No shortness of breath, cough, no sputum production. No wheezing. Cardiovascular: No chest pain, no lower extremity edema. No palpitations. No paroxysmal nocturnal dyspnea. No orthopnea. No lightheadedness or dizziness. No syncopal episodes. Abdominal: No abdominal pain. No nausea, vomiting. No diarrhea. No constipation. No bloody or tarry stools.. No loss of appetite. Genitourinary: No dysuria, increased frequency, urgency. No urinary retention. Musculoskeletal: No myalgias. No muscle weakness, no gait dysfunction, no frequent falls. No back pain. No neck pain. Integumentary: No wounds, reported chronic lesions. No rash or pruritus. No unusual bruising. No change in hair or nails. Neurologic: No aphasia. No facial droop. No change in mentation. No head injury. No headache. No paralysis. No paresthesia. Psychiatric: No depression. No anxiety. No mood swings. Endocrine: No abnormal blood sugars. No weight change. No excessive sweating or thirst. No cold intolerance. PHYSICAL EXAMINATION Gen: This is a 60-year-old male, patient is resting in bed and appears to be comfortable and in no acute distress. HEENT: Head is atraumatic, normocephalic. Pupils equal, round. Sclerae is anicteric. Oral mucous membranes moist. NECK: Supple. No JVD. No lymphadenopathy. No thyromegaly. LUNGS: Clear to auscultation. No wheezes or rhonchi. No intercostal retractions. HEART: Regular rate and rhythm. No murmur. ABDOMEN: Soft. Bowel sounds are present. No masses. No tenderness. EXTREMITIES: No pedal edema. No calf tenderness. SKIN: Scaling lesions noted to the bilateral forearms, bilateral elbows, bilateral ankles and bilateral knees. NEUROLOGICAL: Patient is awake, alert and oriented x3. Cranial nerves 2 through 12 are grossly intact. ASSESSMENT AND PLAN 1. Chest pain, rule out acute coronary syndrome. Consult with cardiology appreciated. Patient's been transferred from [facility] for heart catheterization. Echocardiogram as above. Continue aspirin 325 mg daily, Toprol-XL 50 mg daily, Lipitor 40 mg daily. Scheduled for stress test on Friday. 2. Hypertension. Continue losartan 50 mg daily, Procardia XL 60 mg daily, Toprol-XL 50 mg daily, hydrochlorothiazide 25 mg daily. 3. Hyperlipidemia. Continue Lipitor 40 mg daily. 4. Chronic persistent asthma without exacerbation. Continue albuterol inhaler or nebulizer treatment as needed for shortness of breath, Flovent 2 puffs twice daily. 5. Gastroesophageal reflux disease and GI prophylaxis. Protonix. 6. Obstructive sleep apnea. 7. Tobacco use and dependence. 8. Alcohol abuse. 9. History of Ghajz-Koljnbpuc-Dhpjo syndrome. 10. Psoriasis. Patient has been on prednisone taper. 11. DVT prophylaxis. Early ambulation, BRIGID hose and SCDs. DISCHARGE PLAN Home. Impression and plan of care have been directed as dictated by the signing physician. Richelle Andre nurse practitioner acting as scribe for signing physician. Objective - Vital Signs Vital signs: Vital Signs Temp 97.6 F 07/16/20 07:00 Pulse 77 07/16/20 07:00 Resp 16 07/16/20 07:00 BP 160/115 07/16/20 07:00 Pulse Ox 98 07/16/20 07:00 Intake & Output 07/15/20 07/16/20 07/16/20 18:59 06:59 18:59 Other: Voiding Method Toilet Toilet # Voids 3 2 - Labs Labs: Abnormal Lab Results - Last 24 Hours (Table) 07/15/20 Range/Units 05:43 HDL Cholesterol 80.0 H (40.0-60.0) mg/dL
[2020-07-16] MEDS: MIRTAZAPINE 15 MG TAB PO SCH (20:52)
[2020-07-16] MEDS ORDERED: ATORVASTATIN 40 MG TAB PO SCH (21:00)
[2020-07-17] MEDS ORDERED: REGADENOSON 0.4 MG/5 ML SYRINGE IV PRN (06:00)
[2020-07-17] MEDS ORDERED: AMINOPHYLLINE 500 MG/20 ML VIAL IV PRN (06:00)
[2020-07-17] MEDS ORDERED: CAFFEINE CITRATE 60 MG/3 ML VIAL IV PRN (06:00)
[2020-07-17] MEDS: SODIUM CHLORIDE 0.9% 1,000 ML IV SCH (06:00)
[2020-07-17] MEDS: FLUTICASONE 220 MCG INHALER INHALATION SCH (07:20)
[2020-07-17 07:54] VITALS: BP 147/104; PULSE 76; TEMP 98.3
[2020-07-17] MEDS: PANTOPRAZOLE 40 MG TABLET PO SCH (08:31)
[2020-07-17] MEDS: hydroCHLOROthiazide 25 MG TAB PO SCH (08:32)
[2020-07-17] MEDS: LOSARTAN 50 MG TAB PO SCH (08:32)
[2020-07-17] MEDS: ASPIRIN 81 MG PO SCH (08:32)
[2020-07-17] MEDS: METOPROLOL SUCCINATE (ER) 50 MG TAB.ER.24H PO SCH (08:32)
[2020-07-17 10:09] VITALS: RESP 19
[2020-07-17] MEDS ORDERED: LOSARTAN 50 MG TAB PO STA (10:27)
--- NOTE | 2020-07-17 10:29 | P.PN ---
Subjective This is a pleasant 60-year-old male past medical history significant for hypertension, sleep apnea, alcohol abuse and asthma. He follows in the office with Dr. Gonzalez. He is seen and examined resting comfortably lying flat in no acute distress. He has had no further symptoms of chest discomfort. Breathing is stable. Blood pressure continues to be elevated 147/104 heart rate 76 afebrile maintaining oxygen saturation on room air. Currently maintained on aspirin 81 mg daily, atorvastatin 40 mg daily, losartan 50 mg daily, hydrochlorothiazide 25 mg daily, Toprol 50 mg daily and nifedipine 60 mg daily. GENERAL: Well-appearing, well-nourished and in no acute distress. NECK: Supple without JVD or thyromegaly. LUNGS: Breath sounds clear to auscultation bilaterally. Respiration equal and unlabored. No wheezes, rales or rhonchi. HEART: Regular rate and rhythm without murmurs, rubs or gallops. S1 and S2 heard. EXTREMITIES: Normal range of motion, no edema. No clubbing or cyanosis. Peripheral pulses intact. ASSESSMENT Chest pain Hypertension, uncontrolled Alcohol abuse Obstructive sleep apnea Asthma PLAN Proceed with Lexiscan stress test as previously ordered. If abnormal we will consider coronary angiography. Increase losartan to 100 mg daily, give additional dose of 50 now. Nurse Practitioner note has been reviewed, I agree with a documented findings and plan of care. Patient was seen and examined. Objective - Vital Signs Vital signs: Vital Signs Temp 98.3 F 07/17/20 07:00 Pulse 76 07/17/20 07:00 Resp 19 07/17/20 08:00 BP 147/104 07/17/20 07:00 Pulse Ox 96 07/17/20 07:00 Intake & Output 07/16/20 07/17/20 07/17/20 18:59 06:59 18:59 Intake Total 500 Balance 500 Intake: Oral 500 Other: Voiding Method Toilet # Voids 2 3
[2020-07-17 11:41] LABS: African American GFR (CKD) 93.7 (60.0-200.0); Anion Gap 9.3 mmol/L (4.00-12.00); Calcium 9.1 mg/dL (8.7-10.3); Carbon Dioxide 25.7 mmol/L (21.6-31.8); Non-African American GFR(CKD) 80.9 (60.0-200.0); Potassium 4.5 mmol/L (3.5-5.5)
--- NOTE | 2020-07-17 13:01 | NM ---
EXAMINATION TYPE: NM stress lexiscan cardiolite DATE OF EXAM: 07/17/2020 COMPARISON: NONE HISTORY: Chest pain TECHNIQUE: After the intravenous administration of 10.7 mCi Tc 99m Sestamibi - Cardiolite resting SP ECT images acquired 45 minutes post injection. The patient received 0.4mg Lexiscan, 24.1 mCi Tc 99m Sestamibi - Stress images obtained [address] injection FINDINGS: Review of stress and rest SPECT images demonstrates no distinct perfusion abnormality. Gated analysi s shows normal wall motion with an estimated left ventricular ejection fraction of 45 %. IMPRESSION: No scintigraphic evidence for reversible ischemia.
--- NOTE | 2020-07-17 13:51 | P.DS ---
Providers Date of admission: 07/15/20 12:12 Expected date of discharge: 07/17/20 Attending physician: Carola Castro Consults: 07/14/20 02:57 Consult Physician Urgent Consulting Provider: Pablo Sanchez Consult Reason/Comments: Acute coronary syndrome Do you want consulting provider notified?: Yes Primary care physician: Elmer Neville [facility] Course: HISTORY OF PRESENT ILLNESS This is a 60-year-old male patient of Dr. CHRISTOPHER Neville with past medical history of moderate persistent asthma on Xolair, hypertension, hyperlipidemia, gastroesophageal reflux disease, obstructive sleep apnea with BiPAP, history of morbid obesity status post laparoscopic sleeve gastrectomy, tobacco use and dependence, history of Ruggt-Wxgdqcorc-Uhipc syndrome, alcohol abuse. Patient initially presented to [facility] with substernal left-sided chest pain while he was using a computer doing a zoom call and checking his email. He describes the pain as an elephant on his chest. He denies any radiation. He states he had some mild shortness of breath. Patient has been on prednisone tapering dose for eczema on his knees, ankles, forearms and elbows. Lesions appear to be more of a psoriatic-type lesions. At [facility], patient was started on aspirin, nitroglycerin and heparin and based on site coordinator recommendations, patient was transferred to [facility] for heart catheterization. At the time of evaluation, patient is chest pain-free, no dyspnea and no nausea. Patient was found to be afebrile, heart rate 93, blood pressure 137/92, pulse ox 99% on room air. Repeat troponin 0.014. Coronavirus not detected. Lab work performed at [facility] revealed WBC of 13.1, hemoglobin 15.4, platelet count 269. INR 0.94. Sodium 140, potassium 3.4, chloride 103, CO2 19, BUN 31 and creatinine 1.15. Troponin less than 0.03. Chest x-ray showed no acute cardiopulmonary process. 07/15: Patient states that he is feeling much better. No chest pain. He has been seen by Cardiology with plan for stress test on Friday. He has been afebrile, HR 70, 137/92, PO 98% on RA. Echocardiogram reveals EF 65-70%, severe concentric left ventricular hypertrophy, mild tricuspid regurgitation, mild pulmonary htn. 07/16: Patient denies chest pain, no shortness of breath, no lightheadedness, no dizziness. Patient is waiting for stress test scheduled for Friday. His psoriatic lesions worsening. Long disscusion with the patient and his need to follow-up with dermatology and also possibility of cirrhotic arthritis as patient is complaining of knee pain but had a recent fall. He has been afebrile, heart rate 77, blood pressure 160/115 and hydrochlorothiazide was resumed. Repeat chest x-ray shows no acute process. 07/17: Patient underwent Lexiscan stress test which came back negative and patient was cleared for discharge by cardiology. Cardiology did increase losartan and new prescription has been sent. Patient will be discharged home today in stable condition. Patient advised to follow up with supervisor fiberglass boat assembly as well as his PCP and cardiology after discharge. ASSESSMENT AND PLAN 1. Chest pain, rule out acute coronary syndrome. 2. Hypertension. 3. Hyperlipidemia. 4. Chronic persistent asthma without exacerbation. 5. Gastroesophageal reflux disease. 6. Obstructive sleep apnea. 7. Tobacco use and dependence. 8. Alcohol abuse. 9. History of Alxff-Jsvqwasfa-Sfqel syndrome. 10. Psoriasis. DISCHARGE PLAN Home. Impression and plan of care have been directed as dictated by the signing physician. Richelle Andre nurse practitioner acting as scribe for signing physician. Patient Condition at Discharge: Good Plan - Discharge Summary Discharge Rx Participant: No New Discharge Prescriptions: New Losartan [Cozaar] 100 mg PO DAILY tab Continue NIFEdipine XL [Procardia XL] 60 mg PO DAILY Mirtazapine [Remeron] 30 mg PO HS Albuterol Sulfate [Proair Hfa] 1 - 2 puff INHALATION RT-QID PRN PRN Reason: Shortness Of Breath predniSONE See Taper PO DAILY Metoprolol Succinate [Toprol XL] 50 mg PO DAILY hydroCHLOROthiazide [Hydrodiuril] 25 mg PO DAILY Fluticasone Propionate [Flovent Hfa 220 mcg] 1 - 2 puff INHALATION RT-QID PRN PRN Reason: Shortness Of Breath Disulfiram [Antabuse] 250 mg PO DAILY Changed Atorvastatin Calcium [Lipitor] 40 mg PO HS #0 Discontinued Losartan Potassium 50 mg PO DAILY Discharge Medication List NIFEdipine XL [Procardia XL] 60 mg PO DAILY 07/13/13 [History] Albuterol Sulfate [Proair Hfa] 1 - 2 puff INHALATION RT-QID PRN 07/14/20 [History] Disulfiram [Antabuse] 250 mg PO DAILY 07/14/20 [History] Fluticasone Propionate [Flovent Hfa 220 mcg] 1 - 2 puff INHALATION RT-QID PRN 07/14/20 [History] Metoprolol Succinate [Toprol XL] 50 mg PO DAILY 07/14/20 [History] Mirtazapine [Remeron] 30 mg PO HS 07/14/20 [History] hydroCHLOROthiazide [Hydrodiuril] 25 mg PO DAILY 07/14/20 [History] predniSONE See Taper PO DAILY 07/14/20 [History] Atorvastatin Calcium [Lipitor] 40 mg PO HS #0 07/17/20 [Rx] Losartan [Cozaar] 100 mg PO DAILY tab 07/17/20 [Rx] Follow up Appointment(s)/Referral(s): Mark Gonzalez MD [STAFF PHYSICIAN] - 2 Weeks Elmer Neville MD [Primary Care Provider] - 1 Week Discharge Disposition: HOME SELF-CARE
--- NOTE | 2020-07-17 14:48 | EST ---
EXERCISE STRESS DATE OF SERVICE: INDICATIONS: Chest pain. AGE: 60 SEX: M HT: 5'8" WT: 250 lbs PROTOCOL: Lexiscan STAGE: N/A DURATION OF EXERCISE: N/A HEART RATE REST: 73 BLOOD PRESSURE REST: 166/109 MAXIMUM HEART RATE ACHIEVED: 78 MAXIMUM BLOOD PRESSURE: 166/109 85% MPHR: 135 100% MPHR: 159 METS: N/A STRESS DATA: Heart rate 73, pressure is 156/112 mmHg. Baseline EKG showed sinus mechanism. 0.4 mg of Lexiscan over 15 seconds per protocol. Max heart rate was 78 beats per minute. Maximum pressure was 166/109 mmHg. Clinically the patient did not have any symptoms of chest pain. The EKG did not show any significant ST or T-wave abnormalities concerning for ischemia. Please note that the baseline EKG showed short [place], but I could not see any Coy excitation. CONCLUSION: 1. Nondiagnostic electrocardiogram stress testing in response to Lexiscan. 2. Please follow up on the Cardiolite portion on a separate report from Radiology part. MMODL / IJN: [id number] /
[2020-07-18] MEDS ORDERED: LOSARTAN 50 MG TAB PO SCH (09:00)
== END 2020-07-17 16:05 | disposition home or self-care (01) | DRG 313 ==
LOC: EC 02:37 → 1SOBS 02:57 → 6NMEDSUR 07:31 → OBSVTOIN 07-15 12:12
PROVIDERS: ADMIT Family Medicine; ATTEND Family Medicine
DX: R07.9 Chest pain, unspecified (principal); J45.50 Severe persistent asthma, uncomplicated; J44.9 Chronic obstructive pulmonary disease, unspecified; E78.5 Hyperlipidemia, unspecified; I10 Essential (primary) hypertension; K21.9 Gastro-esophageal reflux disease without esophagitis; Z20.822 Contact with and (suspected) exposure to COVID-19; G47.33 Obstructive sleep apnea (adult) (pediatric); Z99.81 Dependence on supplemental oxygen; E66.01 Morbid (severe) obesity due to excess calories; F17.200 Nicotine dependence, unspecified, uncomplicated; F10.10 Alcohol abuse, uncomplicated; I45.6 Pre-excitation syndrome; L23.9 Allergic contact dermatitis, unspecified cause; I27.20 Pulmonary hypertension, unspecified; L40.9 Psoriasis, unspecified; Z79.51 Long term (current) use of inhaled steroids; Z79.82 Long term (current) use of aspirin; Z79.899 Other long term (current) drug therapy; F32.9 Major depressive disorder, single episode, unspecified
CPT/HCPCS: 71045; 78452; 80048; 80061; 84484; 85379; 87635; 93005; 93017; 93306; 94640; 94760; 99285

== ENCOUNTER 2022-09-17 20:33 | Observation (INO) | payer OTHER ==
--- NOTE | 2022-09-17 21:29 | ED ---
General Adult HPI - General Chief complaint: Chest Pain Stated complaint: chest pain Time Seen by Provider: 09/17/22 20:35 Source: patient, EMS Mode of arrival: EMS Limitations: no limitations - History of Present Illness Initial comments: This is a 62-year-old male with a past medical history including hypertension and hyperlipidemia presents emergency department from an outside facility. The patient initially presented to [facility] for acute left- sided chest pain that began earlier in the day. The patient initially took 3 doses of his sublingual nitroglycerin however denied of any improvement. The patient was evaluated at the outside facility and was determined to have unstable angina. The patient was placed on IV heparin as well as IV nitro and was transferred here for further evaluation as the patient's cad application support specialist is here. The patient is of the patient was history of a previous KS without stents. The patient on arrival stated that his chest pain was under control and he felt improved. The patient denied any other acute pain or complaints at this time. - Related Data Home Medications Medication Instructions Recorded Confirmed Albuterol Sulfate [Proair Hfa] 2 puff INHALATION RT-QID PRN 07/14/20 09/17/22 Acitretin [Soriatane] 25 mg PO BID 03/10/22 09/17/22 Cetirizine HCl [Zyrtec] 10 mg PO DAILY 03/10/22 09/17/22 Losartan Potassium [Cozaar] 100 mg PO DAILY 03/10/22 09/17/22 Mirtazapine 15 mg PO HS 03/10/22 09/17/22 Secukinumab [Cosentyx Pen (2 Pens)] 300 mg SQ Q28D 03/10/22 09/17/22 Clopidogrel [Plavix] 75 mg PO HS 09/17/22 09/17/22 Isosorbide Mononitrate ER [Imdur] 30 mg PO DAILY 09/17/22 09/17/22 Magnesium Oxide [Magox 400] 400 mg PO HS 09/17/22 09/17/22 Metoprolol Succinate (ER) [Toprol 75 mg PO BID 09/17/22 09/17/22 Xl] hydrALAZINE HCL [Apresoline] 25 mg PO TID 09/17/22 09/17/22 Previous Rx's Medication Instructions Recorded Aspirin 81 mg PO DAILY tab 03/14/22 Atorvastatin [Lipitor] 80 mg PO DAILY #90 tab 03/14/22 NIFEdipine XL [Procardia XL] 60 mg PO DAILY #90 tab 03/14/22 Nitroglycerin Sl Tabs [Nitrostat] 0.4 mg SUBLINGUAL Q5M PRN #25 tab 03/14/22 Allergies Allergy/AdvReac Type Severity Reaction Status Date / Time adhesive Allergy Severe blisters Verified 09/17/22 21:18 latex Allergy Dyspnea Verified 09/17/22 21:18 pollen Allergy sneezing/co Uncoded 09/17/22 21:18 ugh Review of Systems ROS Statement: Those systems with pertinent positive or pertinent negative responses have been documented in the HPI. ROS Other: All systems not noted in ROS Statement are negative. Past Medical History Past Medical History: Asthma, GERD/Reflux, Hyperlipidemia, Hypertension, Sleep Apnea/CPAP/BIPAP Additional Past Medical History / Comment(s): Rt femur broken when young, borderline diabetic History of Any Multi-Drug Resistant Organisms: None Reported Past Surgical History: Bariatric Surgery, Cardiac Ablation, Heart Catheterization, Hernia Repair Additional Past Surgical History / Comment(s): For WPW syndrome 1994, bilateral groin hernia repain 1995, surgery on right leg to shorten it, still has plate and screw, gastric sleeve 12/20/2013, thyroid biopsy Past Anesthesia/Blood Transfusion Reactions: No Reported Reaction Past Psychological History: Depression Smoking Status: Current some day smoker Past Alcohol Use History: Heavy Past Drug Use History: None Reported - Past Family History Daughter(s) Family Medical History: Cancer Father Family Medical History: No Reported History Additional Family Medical History / Comment(s): Father lived to be 91 yrs old. Mother Family Medical History: Cancer Additional Family Medical History / Comment(s): pancreatic cancer General Exam Limitations: no limitations General appearance: alert, in no apparent distress, obese Head exam: Present: atraumatic, normocephalic, normal inspection Eye exam: Present: normal appearance, PERRL Pupils: Present: normal accommodation ENT exam: Present: normal exam, normal oropharynx, mucous membranes moist Neck exam: Present: normal inspection, full ROM Respiratory exam: Present: normal lung sounds bilaterally Cardiovascular Exam: Present: normal rhythm, tachycardia, normal heart sounds GI/Abdominal exam: Present: soft, normal bowel sounds Extremities exam: Present: normal inspection, full ROM Back exam: Present: normal inspection, full ROM Neurological exam: Present: alert, oriented X3, CN II-XII intact Psychiatric exam: Present: normal affect, normal mood Skin exam: Present: warm, dry Course Vital Signs 09/17/22 20:35 Temperature 98.0 F Pulse Rate 125 H Respiratory 20 Rate Blood Pressure 134/93 O2 Sat by Pulse 100 Oximetry EKG Findings - EKG Comments: EKG Findings:: An EKG was obtained and was interpreted by myself showing a rate of 89, NM interval 166, QR faith 134 and QTC of 444. This EKG showed a normal sinus rhythm with a right bundle branch block. There was no significant change from his previous EKG performed on 03/10/2022. Medical Decision Making - Medical Decision Making Was pt. sent in by a medical professional or institution (, PA, PRODUCTION CREW SUPERVISOR, urgent care, hospital, or chcf...) When possible be specific @ -Yes, sent in from [facility] Did you speak to anyone other than the patient for history (EMS, parent, family, police, friend...)? What history was obtained from this source @ -No Did you review nursing and triage notes (agree or disagree)? Why? @ -I reviewed and agree with nursing and triage notes Were old charts reviewed (outside hosp., previous admission, EMS record, old EKG, old radiological studies, urgent care reports/EKG's, chcf records)? Report findings @ -No old charts were reviewed Differential Diagnosis (chest pain, altered mental status, abdominal pain women, abdominal pain men, vaginal bleeding, weakness, fever, dyspnea, syncope, headache, dizziness, GI bleed, back pain, seizure, CVA, palpatations, mental health)? @ -Unstable angina, STEMI, NSTEMI EKG interpreted by me (3pts min.). @ -As above X-rays interpreted by me (1pt min.). @ -None done CT interpreted by me (1pt min.). @ -None done U/S interpreted by me (1pt. min.). @ -None done What testing was considered but not performed or refused? (CT, X-rays, U/S, labs)? Why? @ -All imaging was performed at the outside facility therefore no repeat imaging needed at this time. What meds were considered but not given or refused? Why? @ -None Did you discuss the management of the patient with other professionals (professionals i.e. DrJeannie, PA, PRODUCTION CREW SUPERVISOR, lab, RT, psych nurse, nursing home social worker, payroll professional, teacher, first officer and flight instructor, caseworker)? Give summary @ -Yes, admitting service, Catherine Mederos was contacted and accepted the patient for admission. Was smoking cessation discussed for >3mins.? @ -No Was critical care preformed (if so, how long)? @ -No Were there social determinants of health that impacted care today? How? (Homelessness, low income, unemployed, alcoholism, drug addiction, transportation, low edu. Level, literacy, decrease access to med. care, correction, rehab)? @ -No Was there de-escalation of care discussed even if they declined (Discuss DNR or withdrawal of care, Hospice)? DNR status @ -No What co-morbidities impacted this encounter? (DM, HTN, Smoking, COPD, CAD, Cancer, CVA, ARF, Chemo, Hep., AIDS, mental health diagnosis, sleep apnea, morbid obesity)? @ -Hypertension, hyperlipidemia Was patient admitted / discharged? Hospital course, mention meds given and route, prescriptions, significant lab abnormalities, going to OR and other pertinent info. @ -The patient was seen and evaluated emergency department. Physical exam, the patient was resting in bed without any acute distress. The patient was c urrently on IV nitro and heparin. The patient stated his symptoms were under control and the patient was stable for admission. The admitting team was contacted and did agree to this. The patient was admitted in stable condition. Undiagnosed new problem with uncertain prognosis? @ -No Drug Therapy requiring intensive monitoring for toxicity (Heparin, Nitro, Insulin, Cardizem)? @ -Nitro glycerin, heparin Were any procedures done? @ -No Diagnosis/symptom? @ -Unstable angina Acute, or Chronic, or Acute on Chronic? @ -Acute Uncomplicated (without systemic symptoms) or Complicated (systemic symptoms)? @ -Complicated Side effects of treatment? @ -No Exacerbation, Progression, or Severe Exacerbation? @ -No Poses a threat to life or bodily function? How? (Chest pain, USA, KS, pneumonia, PE, COPD, DKA, ARF, appy, cholecystitis, CVA, Diverticulitis, Homicidal, Suicidal, threat to staff... and all critical care pts) @ -Yes, unstable angina can lead to ACS which lead to permanent damage and possible . Disposition Clinical Impression: Unstable angina Disposition: ADMITTED IP TO THIS HOSP Condition: Stable Is patient prescribed a controlled substance at d/c from ED?: No Time of Disposition: 21:00 Decision to Admit Reason: Admit from EC Decision Date: 09/17/22 Decision Time: 21:00
[2022-09-17] MEDS ORDERED: NALOXONE 0.4 MG/ML 1 ML VIAL IV PRN (21:34)
[2022-09-17] MEDS ORDERED: HEPARIN SODIUM 1,000 UN/ML (10ML VL) IV PRN (21:57)
[2022-09-17] MEDS ORDERED: NITROGLYCERIN-D5W PMX 50 MG in DEXTROSE/WATER 1 250ML.BAG IV SCH (22:00)
[2022-09-17] MEDS: HEPARIN SOD,PORK IN 0.45% NACL 25,000 UNIT in 0.45% NACL 1 250ML.BAG IV SCH (22:28)
[2022-09-17 22:30] LABS: ALT 25 U/L (4-49); AST 39 U/L (17-59); African American GFR (CKD) 78 (>60 ml/min/1.73 sqM); Albumin 3.4 g/dL (3.5-5.0); Alkaline Phosphatase 142 U/L (38-126); Anion Gap 6 mmol/L; Blood Urea Nitrogen 13 mg/dL (9-20); Calcium 9.3 mg/dL (8.4-10.2); Carbon Dioxide 28 mmol/L (22-30); Chloride 102 mmol/L (98-107); Glucose 103 mg/dL (74-99); Non-African American GFR(CKD) 67 (>60 ml/min/1.73 sqM); Potassium 5.1 mmol/L (3.5-5.1); Sodium 136 mmol/L (137-145); Total Bilirubin 0.8 mg/dL (0.2-1.3); Total Protein 7.2 g/dL (6.3-8.2)
[2022-09-17] MEDS ORDERED: ADENOSINE 3 MG/ML 2 ML VIAL IVP STA (22:37)
[2022-09-17 22:40] LABS: Basophils % (A) 0 %; Eosinophils # (A) 1.6 k/uL (0-0.7); Eosinophils % (A) 15 %; HCT 38.8 % (39.0-53.0); HGB 12.5 gm/dL (13.0-17.5); Hypochromasia Slight; Lymphocytes # (A) 1.2 k/uL (1.0-4.8); Lymphocytes % (A) 12 %; MCH 30.9 pg (25.0-35.0); MCHC 32.2 g/dL (31.0-37.0); Mean Platelet Volume 8.4; Monocytes # (A) 0.6 k/uL (0-1.0); Monocytes % (A) 6 %; Neutrophils # (A) 6.8 k/uL (1.3-7.7); Neutrophils % (A) 66 %; Platelet Count 222 k/uL (150-450); RBC 4.04 m/uL (4.30-5.90); RDW 12.8 % (11.5-15.5); WBC 10.4 k/uL (3.8-10.6)
[2022-09-17 23:02] LABS: Partial Thromboplastin Time 23.7 sec (22.0-30.0); Prothrombin Time 10.3 sec (9.0-12.0)
[2022-09-18] MEDS ORDERED: ALBUTEROL NEBULIZED 2.5 MG/3 ML INHALATION PRN (08:59)
[2022-09-18] MEDS ORDERED: METOPROLOL SUCCINATE (ER) 50 MG TAB.ER.24H PO SCH (09:00)
[2022-09-18] MEDS ORDERED: LOSARTAN 50 MG TAB PO SCH (09:00)
[2022-09-18] MEDS ORDERED: ISOSORBIDE MONONITRATE ER 30 MG TAB.ER.24H PO SCH (09:00)
[2022-09-18] MEDS ORDERED: NIFEdipine XL 90 MG TAB.ER.24 PO SCH (09:00)
[2022-09-18] MEDS: LORATADINE 10 MG TAB PO SCH (09:11)
[2022-09-18] MEDS: ATORVASTATIN 80 MG TAB PO SCH (09:11)
[2022-09-18] MEDS: VERAPAMIL 80 MG TAB PO SCH ×2 (09:11→20:13)
[2022-09-18] MEDS: ISOSORBIDE MONONITRATE ER 30 MG TAB.ER.24H PO SCH ×2 (09:11→20:13)
[2022-09-18] MEDS: ASPIRIN 81 MG PO SCH (09:11)
--- NOTE | 2022-09-18 09:54 | P.CRDCN ---
History of Present Illness History of present illness: HISTORY OF PRESENT ILLNESS: This is a 62-year-old male with a past medical history significant for coronary artery disease, coronary vasospasm of the RCA, hypertension, hyperlipidemia, and previous ablation for WPW syndrome. Patient follows in the office with Dr. Dario colmenares. We have been asked to see the patient in consultation for chest pain. Patient examined at the bedside. Patient states yesterday he was just resting at home when he began to have chest pain, shortness of breath, and diaphoresis. He states this started around 10:00. He reports taking 3 nitro. With each nitro his symptoms would improve for a few minutes and then would come back so he decided to come to the emergency room for further evaluation. The patient was started on IV heparin and IV nitro. The patient currently denies any chest pain or pressure. In February 2022, [facility]. The patient was found to have ST segment elevations i nferiorly and also had torsade de pointes requiring cardioversion. He was transferred to [facility] where he underwent cardiac catheterization revealing mild triple vessel disease and possible vasospasm in the mid RCA, normal LVEDP. * EKG reveals sinus mechanism. Right bundle branch block. ST depression in lead 1, V2V6 * Laboratory data: WBC 10.4. Hemoglobin 12.5. Platelet count 222. Sodium 136. Potassium 5.1. BUN 13. Creatinine 1.16. Troponin negative 1. * Current home cardiac medications include aspirin 81 mg daily, Plavix 75 mg at night, Lipitor 80 mg daily, losartan 100 mg daily, metoprolol succinate 75 mg twice a day, Procardia 60 mg daily, Imdur 30 mg daily, and hydralazine 25 mg 3 times a day * Most recent echocardiogram obtained in February 2022 revealed ejection fraction 50%, mild pulmonary hypertension, trace to mild MR, mild TR. REVIEW OF SYSTEMS: At the time of my exam: CONSTITUTIONAL: Denies fever or chills. HEENT: Denies blurred vision, vision changes, or eye pain. Denies hemoptysis CARDIOVASCULAR: Denies chest pain. Denies orthopnea. Denies PND. Denies palpitations RESPIRATORY: Denies shortness of breath. GASTROINTESTINAL: Denies abdominal pain. Denies nausea or vomiting. HEMATOLOGIC: Denies bleeding disorders. GENITOURINARY: Denies any blood in urine. SKIN: Denies pruitis. Denies rash. PHYSICAL EXAM: VITAL SIGNS: Reviewed. GENERAL: Well-developed in no acute distress. HEENT: Head is normocephalic. Pupils are equal, round. Sclerae anicteric. Mucous membranes of the mouth are moist. Neck supple. No JVD or thyromegaly LUNGS: Respirations even and unlabored. Lungs essentially clear to auscultation bilaterally. HEART: Regular rate and rhythm. S1 and S2 heard. ABDOMEN: Soft. Nondistended. Nontender. EXTREMITIES: Normal range of motion. No clubbing or cyanosis. Peripheral pulses intact. No lower extremity edema NEUROLOGIC: Awake and alert. Oriented x 3. ASSESSMENT: Chest pain, likely vasospasm Mild coronary artery disease, per cardiac catheterization 02/2022 History of coronary vasospasm of mid RCA, 02/2022 History of torsade de pointes requiring cardioversion, 02/2022 Hypertension Hyperlipidemia Previous ablation for WPW syndrome PLAN: Obtain limited echo Obtain second troponin. If negative, will discontinue IV heparin Continue IV nitro. Discontinue at 1800 Discontinue hydralazine, metoprolol, and Procardia Increase Imdur to 30 mg twice a day Begin high-dose verapamil 240 mg twice a day for coronary vasospasm No plans for cardiac catheterization unless patient develops recurrent chest pain despite changes in medication regimen Further recommendations pending patient course Nurse practitioner note has been reviewed by physician. Signing provider agrees with the documented findings, assessment, and plan of care. Past Medical History Past Medical History: Asthma, GERD/Reflux, Hyperlipidemia, Hypertension, Sleep Apnea/CPAP/BIPAP Additional Past Medical History / Comment(s): Rt femur broken when young, borderline diabetic History of Any Multi-Drug Resistant Organisms: None Reported Past Surgical History: Bariatric Surgery, Cardiac Ablation, Heart Catheterizati on, Hernia Repair Additional Past Surgical History / Comment(s): For WPW syndrome 1994, bilateral groin hernia repain 1995, surgery on right leg to shorten it, still has plate and screw, gastric sleeve 12/20/2013, thyroid biopsy Past Anesthesia/Blood Transfusion Reactions: No Reported Reaction Past Psychological History: Depression Additional Psychological History / Comment(s): Pt resides with his mckenzie. He is independent. Smoking Status: Former smoker Past Alcohol Use History: Occasional Additional Past Alcohol Use History / Comment(s): Pt started smoking in 1977 and smokes a pack a week. Pt drinks 5-6 whiskey drinks per day. Past Drug Use History: None Reported - Past Family History Daughter(s) Family Medical History: Cancer Father Family Medical History: No Reported History Additional Family Medical History / Comment(s): Father lived to be 91 yrs old. Mother Family Medical History: Cancer Additional Family Medical History / Comment(s): pancreatic cancer Medications and Allergies Home Medications Medication Instructions Recorded Confirmed Type Albuterol Sulfate [Proair Hfa] 2 puff INHALATION RT-QID PRN 07/14/20 09/17/22 History Acitretin [Soriatane] 25 mg PO BID 03/10/22 09/17/22 History Cetirizine HCl [Zyrtec] 10 mg PO DAILY 03/10/22 09/17/22 History Losartan Potassium [Cozaar] 100 mg PO DAILY 03/10/22 09/17/22 History Mirtazapine 15 mg PO HS 03/10/22 09/17/22 History Secukinumab [Cosentyx Pen (2 Pens)] 300 mg SQ Q28D 03/10/22 09/17/22 History Aspirin 81 mg PO DAILY tab 03/14/22 09/17/22 Rx Atorvastatin [Lipitor] 80 mg PO DAILY #90 tab 03/14/22 09/17/22 Rx NIFEdipine XL [Procardia XL] 60 mg PO DAILY #90 tab 03/14/22 09/17/22 Rx Nitroglycerin Sl Tabs [Nitrostat] 0.4 mg SUBLINGUAL Q5M PRN #25 tab 03/14/22 09/17/22 Rx Clopidogrel [Plavix] 75 mg PO HS 09/17/22 09/17/22 History Isosorbide Mononitrate ER [Imdur] 30 mg PO DAILY 09/17/22 09/17/22 History Magnesium Oxide [Magox 400] 400 mg PO HS 09/17/22 09/17/22 History Metoprolol Succinate (ER) [Toprol 75 mg PO BID 09/17/22 09/17/22 History Xl] hydrALAZINE HCL [Apresoline] 25 mg PO TID 09/17/22 09/17/22 History Allergies Allergy/AdvReac Type Severity Reaction Status Date / Time adhesive Allergy Severe blisters Verified 09/17/22 21:18 latex Allergy Dyspnea Verified 09/17/22 21:18 pollen Allergy sneezing/co Uncoded 09/17/22 21:18 ugh Physical Exam Vitals: Vital Signs Temp Pulse Pulse Resp BP BP Pulse Ox 09/18/22 04:00 81 16 121/70 97 09/17/22 23:35 98.1 F 93 16 133/84 98 09/17/22 23:15 98 18 120/92 97 09/17/22 20:35 98.0 F 125 H 20 134/93 100 Intake and Output 09/17/22 09/18/22 09/18/22 22:59 06:59 14:59 Intake Total 608.833 Balance 608.833 Intake: Intake, IV Titration 68.833 Amount Heparin Sod,Pork in 0.45% 68.833 NaCl 25,000 unit In 0.45 % NaCl 1 250ml.bag @ 9. 5853 UNITS/KG/HR 10 mls/ hr IV .Q24H [facility] Rx#: [id number] Oral 540 Other: Voiding Method Toilet Weight 104.326 kg 104.326 kg Results 09/17/22 21:54 09/17/22 21:54 Cardiac Enzymes 09/17/22 09/17/22 Range/Units 21:54 21:54 AST 39 (17-59) U/L Troponin I <0.012 (0.000-0.034) ng/mL Coagulation 09/17/22 09/18/22 Range/Units 22:37 04:29 PT 10.3 (9.0-12.0) sec APTT 23.7 28.3 (22.0-30.0) sec CBC 09/17/22 Range/Units 21:54 WBC 10.4 (3.8-10.6) k/uL RBC 4.04 L (4.30-5.90) m/uL Hgb 12.5 L (13.0-17.5) gm/dL Hct 38.8 L (39.0-53.0) % Plt Count 222 (150-450) k/uL Comprehensive Metabolic Panel 09/17/22 Range/Units 21:54 Sodium 136 L (137-145) mmol/L Potassium 5.1 (3.5-5.1) mmol/L Chloride 102 (98-107) mmol/L Carbon Dioxide 28 (22-30) mmol/L BUN 13 (9-20) mg/dL Creatinine 1.16 (0.66-1.25) mg/dL Glucose 103 H (74-99) mg/dL Calcium 9.3 (8.4-10.2) mg/dL AST 39 (17-59) U/L ALT 25 (4-49) U/L Alkaline Phosphatase 142 H (38-126) U/L Total Protein 7.2 (6.3-8.2) g/dL Albumin 3.4 L (3.5-5.0) g/dL Current Medications Generic Name Dose Route Start Last Admin Trade Name Freq PRN Reason Stop Dose Admin Heparin Sodium (Porcine) 0 unit 09/17/22 21:57 09/18/22 05:22 Heparin Sodium 1,000 Un/Ml (10ml Vl) IV 4,000 unit PER PROTOCOL PRN Administration Low PTT Protocol Heparin Sodium/Sodium Chloride 250 mls @ 10 mls/hr 09/17/22 22:00 09/18/22 05:21 25,000 unit/ Sodium Chloride IV 12.58 units/kg/hr .Q24H [facility] 13.124 mls/hr Titration Protocol 9.5853 UNITS/KG/HR Nitroglycerin/Dextrose 50 mg/ 250 mls @ 1.5 mls/hr 09/17/22 22:00 09/17/22 22:30 IV Solution IV 5 mcg/min .Q24H [facility] 1.5 mls/hr Administration 5 MCG/MIN Naloxone HCl 0.2 mg 09/17/22 21:34 Naloxone 0.4 Mg/Ml 1 Ml Vial IV Q2M PRN Opioid Reversal Nifedipine 90 mg 09/18/22 09:00 Nifedipine Xl 90 Mg Tab.Er.24 PO DAILY [facility] Intake and Output 09/17/22 09/18/22 09/18/22 22:59 06:59 14:59 Intake Total 608.833 Balance 608.833 Intake: Intake, IV Titration 68.833 Amount Heparin Sod,Pork in 0.45% 68.833 NaCl 25,000 unit In 0.45 % NaCl 1 250ml.bag @ 9. 5853 UNITS/KG/HR 10 mls/ hr IV .Q24H [facility] Rx#: [id number] Oral 540 Other: Voiding Method Toilet Weight 104.326 kg 104.326 kg 09/17/22 21:54 09/17/22 21:54
[2022-09-18] MEDS: LOSARTAN 50 MG TAB PO SCH (10:58)
--- NOTE | 2022-09-18 11:52 | P.HPIM ---
History of Present Illness H&P Date: 09/18/22 History of present illness; patient is 62-year-old gentleman with past medical h istory significant for psoriasis, depression, hypertension, hyperlipidemia who presented to the [facility] as a transfer from [facility] for unstable angina. Patient initially presented to the previous facility because of chest pain that was left-sided, crushing in nature, no aggravating or relieving factors associated with the chest pain. No current nausea or vomiting. Patient took nitroglycerin sublingual 3 tablets that did not improve his chest pain. Patient initially presented to [facility], was started on IV heparin and nitro drip and was transferred to [facility] Initial lab work done in the ER showed WBC 10.4, hemoglobin 12.5, platelet count 222, sodium 136, potassium 5.1, BUN 13, creatinine 1.16, total bilirubin 0.8, AST 39 EKG done in the ER showed ventricular rate of 89, QRS 134, showed ST segment depressions in V2 and V3 V4. Patient admitted to medicine service REVIEW OF SYSTEMS: CONSTITUTIONAL: No fever, no malaise, no fatigue. HEENT: No recent visual problems or hearing problems. Denied any sore throat. CARDIOVASCULAR: As mentioned in HPI PULMONARY: No shortness of breath, no cough, no hemoptysis. GASTROINTESTINAL: No diarrhea, no nausea, no vomiting, no abdominal pain. NEUROLOGICAL: No headaches, no weakness, no numbness. HEMATOLOGICAL: Denies any bleeding or petechiae. GENITOURINARY: Denies any burning micturition, frequency, or urgency. MUSCULOSKELETAL/RHEUMATOLOGICAL: Denies any joint pain, swelling, or any muscle pain. ENDOCRINE: Denies any polyuria or polydipsia. The rest of the 14-point review of systems is negative. PHYSICAL EXAMINATION: GENERAL: The patient is alert and oriented x3, not in any acute distress. Well developed, well nourished. HEENT: Pupils are round and equally reacting to light. EOMI. No scleral icterus. No conjunctival pallor. Normocephalic, atraumatic. No pharyngeal erythema. No thyromegaly. CARDIOVASCULAR: S1 and S2 present. No murmurs, rubs, or gallops. PULMONARY: Chest is clear to auscultation, no wheezing or crackles. ABDOMEN: Soft, nontender, nondistended, normoactive bowel sounds. No palpable organomegaly. MUSCULOSKELETAL: No joint swelling or deformity. EXTREMITIES: No cyanosis, clubbing, or pedal edema. NEUROLOGICAL: Gross neurological examination did not reveal any focal deficits. SKIN: No rashes. Assessment and plan Unstable angina Hypertension Hyperlipidemia Monitor vital signs Monitor CBC Monitor CMP Continue telemetry monitoring Trend troponin Continue pharmacy to dose heparin Continue nitro drip Resume home meds 2-D echo ordered Cardiology consulted Labs and medication were reviewed.. Continue same treatment. Continue with symptomatic treatment. Resume home medication. Monitor labs and vitals. DVT and GI prophylaxis. Further recommendations as per clinical course of the patient Dictation was produced using [employer] dictation software. please excuse any grammatical, word or spelling errors. Past Medical History Past Medical History: Asthma, GERD/Reflux, Hyperlipidemia, Hypertension, Sleep Apnea/CPAP/BIPAP Additional Past Medical History / Comment(s): Rt femur broken when young, borderline diabetic History of Any Multi-Drug Resistant Organisms: None Reported Past Surgical History: Bariatric Surgery, Cardiac Ablation, Heart Catheterization, Hernia Repair Additional Past Surgical History / Comment(s): For WPW syndrome 1994, bilateral groin hernia repain 1995, surgery on right leg to shorten it, still has plate and screw, gastric sleeve 12/20/2013, thyroid biopsy Past Anesthesia/Blood Transfusion Reactions: No Reported Reaction Past Psychological History: Depression Additional Psychological History / Comment(s): Pt resides with his mckenzie. He is independent. Smoking Status: Former smoker Past Alcohol Use History: Occasional Additional Past Alcohol Use History / Comment(s): Pt started smoking in 1977 and smokes a pack a week. Pt drinks 5-6 whiskey drinks per day. Past Drug Use History: None Reported - Past Family History Daughter(s) Family Medical History: Cancer Father Family Medical History: No Reported History Additional Family Medical History / Comment(s): Father lived to be 91 yrs old. Mother Family Medical History: Cancer Additional Family Medical History / Comment(s): pancreatic cancer Medications and Allergies Home Medications Medication Instructions Recorded Confirmed Type Albuterol Sulfate [Proair Hfa] 2 puff INHALATION RT-QID PRN 07/14/20 09/17/22 History Acitretin [Soriatane] 25 mg PO BID 03/10/22 09/17/22 History Cetirizine HCl [Zyrtec] 10 mg PO DAILY 03/10/22 09/17/22 History Losartan Potassium [Cozaar] 100 mg PO DAILY 03/10/22 09/17/22 History Mirtazapine 15 mg PO HS 03/10/22 09/17/22 History Secukinumab [Cosentyx Pen (2 Pens)] 300 mg SQ Q28D 03/10/22 09/17/22 History Aspirin 81 mg PO DAILY tab 03/14/22 09/17/22 Rx Atorvastatin [Lipitor] 80 mg PO DAILY #90 tab 03/14/22 09/17/22 Rx NIFEdipine XL [Procardia XL] 60 mg PO DAILY #90 tab 03/14/22 09/17/22 Rx Nitroglycerin Sl Tabs [Nitrostat] 0.4 mg SUBLINGUAL Q5M PRN #25 tab 03/14/22 09/17/22 Rx Clopidogrel [Plavix] 75 mg PO HS 09/17/22 09/17/22 History Isosorbide Mononitrate ER [Imdur] 30 mg PO DAILY 09/17/22 09/17/22 History Magnesium Oxide [Magox 400] 400 mg PO HS 09/17/22 09/17/22 History Metoprolol Succinate (ER) [Toprol 75 mg PO BID 09/17/22 09/17/22 History Xl] hydrALAZINE HCL [Apresoline] 25 mg PO TID 09/17/22 09/17/22 History Allergies Allergy/AdvReac Type Severity Reaction Status Date / Time adhesive Allergy Severe blisters Verified 09/17/22 21:18 latex Allergy Dyspnea Verified 09/17/22 21:18 pollen Allergy sneezing/co Uncoded 09/17/22 21:18 ugh Physical Exam Vitals: Vital Signs Temp Pulse Pulse Resp BP BP Pulse Ox 09/18/22 04:00 81 16 121/70 97 09/17/22 23:35 98.1 F 93 16 133/84 98 09/17/22 23:15 98 18 120/92 97 09/17/22 20:35 98.0 F 125 H 20 134/93 100 Intake and Output 09/17/22 09/18/22 09/18/22 22:59 06:59 14:59 Intake Total 608.833 Output Total 400 Balance 608.833 -400 Intake: Intake, IV Titration 68.833 Amount Heparin Sod,Pork in 0.45% 68.833 NaCl 25,000 unit In 0.45 % NaCl 1 250ml.bag @ 9. 5853 UNITS/KG/HR 10 mls/ hr IV .Q24H [facility] Rx#: [id number] Oral 540 Output: Urine 400 Other: Voiding Method Toilet Weight 104.326 kg 104.326 kg Results CBC & Chem 7: 09/17/22 21:54 09/17/22 21:54 Labs: Abnormal Lab Results - Last 24 Hours (Table) 09/17/22 09/17/22 Range/Units 21:54 21:54 RBC 4.04 L (4.30-5.90) m/uL Hgb 12.5 L (13.0-17.5) gm/dL Hct 38.8 L (39.0-53.0) % Eosinophils # 1.6 H (0-0.7) k/uL Sodium 136 L (137-145) mmol/L Glucose 103 H (74-99) mg/dL Alkaline Phosphatase 142 H (38-126) U/L Albumin 3.4 L (3.5-5.0) g/dL
[2022-09-18] MEDS ORDERED: MAGNESIUM OXIDE 400 MG TAB PO SCH (21:00)
[2022-09-18] MEDS ORDERED: CLOPIDOGREL 75 MG TAB PO SCH (21:00)
[2022-09-18] MEDS ORDERED: MIRTAZAPINE 15 MG TAB PO SCH (21:00)
[2022-09-18] MEDS: HEPARIN SOD,PORK IN 0.45% NACL 25,000 UNIT in 0.45% NACL 1 250ML.BAG IV SCH (21:09)
[2022-09-19 01:07] LABS: Chol/HDL Ratio 2.22 Ratio; LDL Cholesterol,Calculated 52.7 mg/dL (0.0-131.0)
[2022-09-19] MEDS: ISOSORBIDE MONONITRATE ER 30 MG TAB.ER.24H PO SCH (09:07)
[2022-09-19] MEDS: VERAPAMIL 80 MG TAB PO SCH (09:07)
[2022-09-19] MEDS: ASPIRIN 81 MG PO SCH (09:07)
[2022-09-19] MEDS: LORATADINE 10 MG TAB PO SCH (09:07)
[2022-09-19] MEDS: ATORVASTATIN 80 MG TAB PO SCH (09:07)
[2022-09-19 10:14] VITALS: TEMP 98.2
[2022-09-19] MEDS: LOSARTAN 50 MG TAB PO SCH (11:14)
--- NOTE | 2022-09-19 13:19 | P.DS ---
Providers Date of admission: 09/17/22 21:34 Expected date of discharge: 09/19/22 Attending physician: Isaac Pires Consults: 09/17/22 21:34 Consult Physician Routine Consulting Provider: [facility] Consult Reason/Comments: Unstable angina Do you want consulting provider notified?: Yes, Notify in am Primary care physician: Britta [facility] Course: Discharge diagnoses; Unstable angina Hypertension Hyperlipidemia Hospital course; patient is 62-year-old gentleman with past medical history significant for psoriasis, depression, hypertension, hyperlipidemia who presented to the [facility] as a transfer from [facility] for unstable angina. Patient initially presented to the previous facility because of chest pain that was left-sided, crushing in nature, no aggravating or relieving factors associated with the chest pain. No current nausea or vomiting. Patient took nitroglycerin sublingual 3 tablets that did not improve his chest pain. Patient initially presented to [facility], was started on IV heparin and nitro drip and was transferred to [facility] Initial lab work done in the ER showed WBC 10.4, hemoglobin 12.5, platelet count 222, sodium 136, potassium 5.1, BUN 13, creatinine 1.16, total bilirubin 0.8, AST 39 EKG done in the ER showed ventricular rate of 89, QRS 134, showed ST segment depressions in V2 and V3 V4. Patient admitted to medicine service Patient was seen by cardiology, they recommended discontinuing heparin and nitro drip. imdur dose was increased to 30. Cardiology also started patient on high dose verapamil for coronary vasospasm.. Cardiology cleared patient for discharge PHYSICAL EXAMINATION: GENERAL: The patient is alert and oriented x3, not in any acute distress. Well developed, well nourished. HEENT: Pupils are round and equally reacting to light. EOMI. No scleral icterus. No conjunctival pallor. Normocephalic, atraumatic. No pharyngeal erythema. No thyromegaly. CARDIOVASCULAR: S1 and S2 present. No murmurs, rubs, or gallops. PULMONARY: Chest is clear to auscultation, no wheezing or crackles. ABDOMEN: Soft, nontender, nondistended, normoactive bowel sounds. No palpable organomegaly. MUSCULOSKELETAL: No joint swelling or deformity. EXTREMITIES: No cyanosis, clubbing, or pedal edema. NEUROLOGICAL: Gross neurological examination did not reveal any focal deficits. SKIN: No rashes. Dictation was produced using [employer] dictation software. please excuse any grammatical, word or spelling errors. Patient Condition at Discharge: Stable Plan - Discharge Summary Discharge Rx Participant: Yes New Discharge Prescriptions: New Isosorbide Mononitrate ER [Imdur] 30 mg PO BID #60 tab Verapamil [Isoptin] 240 mg PO BID #30 tab Continue Albuterol Sulfate [Proair Hfa] 2 puff INHALATION RT-QID PRN PRN Reason: Shortness Of Breath Atorvastatin [Lipitor] 80 mg PO DAILY #90 tab Nitroglycerin Sl Tabs [Nitrostat] 0.4 mg SUBLINGUAL Q5M PRN #25 tab PRN Reason: Chest Pain Magnesium Oxide [Magox 400] 400 mg PO HS Mirtazapine 15 mg PO HS Cetirizine HCl [Zyrtec] 10 mg PO DAILY Secukinumab [Cosentyx Pen (2 Pens)] 300 mg SQ Q28D Losartan Potassium [Cozaar] 100 mg PO DAILY Acitretin [Soriatane] 25 mg PO BID Aspirin 81 mg PO DAILY tab Clopidogrel [Plavix] 75 mg PO HS Discontinued NIFEdipine XL [Procardia XL] 60 mg PO DAILY #90 tab hydrALAZINE HCL [Apresoline] 25 mg PO TID Isosorbide Mononitrate ER [Imdur] 30 mg PO DAILY Metoprolol Succinate (ER) [Toprol Xl] 75 mg PO BID Discharge Medication List Albuterol Sulfate [Proair Hfa] 2 puff INHALATION RT-QID PRN 07/14/20 [History] Acitretin [Soriatane] 25 mg PO BID 03/10/22 [History] Cetirizine HCl [Zyrtec] 10 mg PO DAILY 03/10/22 [History] Losartan Potassium [Cozaar] 100 mg PO DAILY 03/10/22 [History] Mirtazapine 15 mg PO HS 03/10/22 [History] Secukinumab [Cosentyx Pen (2 Pens)] 300 mg SQ Q28D 03/10/22 [History] Aspirin 81 mg PO DAILY tab 03/14/22 [Rx] Atorvastatin [Lipitor] 80 mg PO DAILY #90 tab 03/14/22 [Rx] Nitroglycerin Sl Tabs [Nitrostat] 0.4 mg SUBLINGUAL Q5M PRN #25 tab 03/14/22 [Rx] Clopidogrel [Plavix] 75 mg PO HS 09/17/22 [History] Magnesium Oxide [Magox 400] 400 mg PO HS 09/17/22 [History] Isosorbide Mononitrate ER [Imdur] 30 mg PO BID #60 tab 09/19/22 [Rx] Verapamil [Isoptin] 240 mg PO BID #30 tab 09/19/22 [Rx] Follow up Appointment(s)/Referral(s): Britta Neville MD [Primary Care Provider] - 1-2 days Deshawn Bailey MD [STAFF PHYSICIAN] - 1 Week Discharge Disposition: HOME SELF-CARE
--- NOTE | 2022-09-19 13:26 | P.PN ---
Subjective HISTORY OF PRESENT ILLNESS: This is a 62-year-old male with a past medical history significant for coronary artery disease, coronary vasospasm of the RCA, hypertension, hyperlipidemia, and previous ablation for WPW syndrome. Patient follows in the office with Dr. Bailey. We have been asked to see the patient in consultation for chest pain. Patient examined at the bedside. Patient states yesterday he was just resting at home when he began to have chest pain, shortness of breath, and diaphoresis. He states this started around 10:00. He reports taking 3 nitro. With each nitro his symptoms would improve for a few minutes and then would come back so he decided to come to the emergency room for further evaluation. The patient was started on IV heparin and IV nitro. The patient currently denies any chest pain or pressure. [facility]. The patient was found to have ST segment elevations inferiorly and also had torsade de pointes requiring cardioversion. He was transferred to [facility] where he underwent cardiac catheterization revealing mild triple vessel disease and possible vasospasm in the mid RCA, normal LVEDP. * EKG reveals sinus mechanism. Right bundle branch block. ST depression in lead 1, V2V6 * Laboratory data: WBC 10.4. Hemoglobin 12.5. Platelet count 222. Sodium 136. Potassium 5.1. BUN 13. Creatinine 1.16. Troponin negative 1. * Current home cardiac medications include aspirin 81 mg daily, Plavix 75 mg at night, Lipitor 80 mg daily, losartan 100 mg daily, metoprolol succinate 75 mg twice a day, Procardia 60 mg daily, Imdur 30 mg daily, and hydralazine 25 mg 3 times a day * Most recent echocardiogram obtained in February 2022 revealed ejection fraction 50%, mild pulmonary hypertension, trace to mild MR, mild TR. 09/19/2022 Patient examined this morning at the bedside. Patient denies any further episodes of chest pain or pressure. He denies shortness of breath. He's been up ambulating without difficulty. Vital signs are stable. Patient's IV heparin and IV nitro been discontinued. PHYSICAL EXAM: VITAL SIGNS: Reviewed. GENERAL: Well-developed in no acute distress. HEENT: Head is normocephalic. Pupils are equal, round. Sclerae anicteric. Mucous membranes of the mouth are moist. Neck supple. No JVD or thyromegaly LUNGS: Respirations even and unlabored. Lungs essentially clear to auscultation bilaterally. HEART: Regular rate and rhythm. S1 and S2 heard. ABDOMEN: Soft. Nondistended. Nontender. EXTREMITIES: Normal range of motion. No clubbing or cyanosis. Peripheral pulses intact. No lower extremity edema NEUROLOGIC: Awake and alert. Oriented x 3. ASSESSMENT: Chest pain, likely vasospasm Mild coronary artery disease, per cardiac catheterization 02/2022 History of coronary vasospasm of mid RCA, 02/2022 History of torsade de pointes requiring cardioversion, 02/2022 Hypertension Hyperlipidemia Previous ablation for WPW syndrome PLAN: Continue current cardiac medications Increase activity today Patient may be discharged home this evening if he remains chest pain-free Patient is to follow up on an outpatient basis Nurse practitioner note has been reviewed by physician. Signing provider agrees with the documented findings, assessment, and plan of care. Objective - Vital Signs Vital signs: Vital Signs Temp 98.2 F 09/19/22 09:05 Pulse 81 09/19/22 11:15 Resp 17 09/19/22 11:15 BP 128/61 09/19/22 11:15 Pulse Ox 97 09/19/22 11:15 FiO2 Intake & Output 09/18/22 09/19/22 09/19/22 18:59 06:59 18:59 Intake Total 618.744 Output Total 725 Balance -106.256 Intake: Intake, IV Titration 78.744 Amount Heparin Sod,Pork in 0.45% 78.744 NaCl 25,000 unit In 0.45 % NaCl 1 250ml.bag @ 9. 5853 UNITS/KG/HR 10 mls/ hr IV .Q24H [facility] [place] Rx#: [id number] Oral 540 Output: Urine 725 Other: Voiding Method Toilet Toilet Toilet Urinal Urinal Urinal # Voids 1 # Bowel Movements 1 - Labs CBC & Chem 7: 09/17/22 21:54 09/17/22 21:54 Labs: Abnormal Lab Results - Last 24 Hours (Table) 09/18/22 Range/Units 08:17 HDL Cholesterol 61.70 H (40.00-60.00) mg/dL
--- NOTE | 2022-09-19 15:19 | CT ---
CT CHEST FOR PULMONARY EMBOLISM. EXAMINATION TYPE: CT chest angio for PE DATE OF EXAM: 09/19/2022 INDICATION: SOB CT DLP: 574 mGycm, Automated exposure control for dose reduction was used. CONTRAST: Patient injected with 100 mL of Isovue 300. COMPARISON: None TECHNIQUE: CT of the chest is performed on a spiral scan at 2 mm thick sections. Study is performed with intravenous contrast timed for evaluation for pulmonary embolism. This will limit additional po rtions of the evaluation. 3-D MIP images reconstructed by the technologist are reviewed on the compu ter in the coronal and sagittal planes. FINDINGS: No persistent filling defects are evident to suggest an acute pulmonary embolism. No mediastinal or hilar adenopathy enlarged by CT criteria is evident. Shotty lymphadenopathy is wit hin the mediastinum. There is a prominent lymph node in the left axilla measuring 2.1 cm. The ascending aorta diameter at the level of the main pulmonary artery is 4.0 cm. The main pulmonary artery diameter at the bifurcation is 3.2 cm. Coronary artery calcification is present. Lung windows are clear. Limited CT section through the upper abdomen. Gastric sleeve is evident. IMPRESSIONS: 1. No acute pulmonary embolism. 2. Ascending thoracic aortic aneurysm 4.0 cm. 3. Prominent left axillary lymph node.
[2022-09-19 16:30] VITALS: BP 139/77; PULSE 97; RESP 18
--- NOTE | 2022-09-19 17:23 | CA ---
Transthoracic Echo Report Name: Singh Bucio Age: 62 Gender: M : 1960 Exam Date: 09/18/2022 09:38 Exam Location: [facility] Ht (in): 68 Wt (lb): 230 Ordering Physician: Nadege Holland Attending/Referring Phys: [id number], [employer] Att[employer] Suresh Mills Procedure CPT: Indications: LV funcgtion Cardiac Hx: Technical Quality: Fair Contrast 1: Total Dose (mL): Contrast 2: Total Dose (mL): MEASUREMENTS (Male / Female) Normal Values 2D ECHO LV Diastolic Diameter PLAX 4.8 cm 4.2 - 5.9 / 3.9 - 5.3 cm LV Systolic Diameter PLAX 3.7 cm IVS Diastolic Thickness 1.7 cm 0.6 - 1.0 / 0.6 - 0.9 cm LVPW Diastolic Thickness 1.5 cm 0.6 - 1.0 / 0.6 - 0.9 cm LV Relative Wall Thickness 0.7 RV Internal Dim ED PLAX 3.9 cm LVOT Diameter 2.2 cm Aortic Root Diameter 3.8 cm LV Diastolic Volume MOD BP 57.3 cm??? 67 - 155 / 56 - 104 cm??? LV Systolic Volume MOD BP 25.9 cm??? 22 - 58 / 19 - 49 cm??? LV Ejection Fraction MOD BP 54.9 % >= 55 % LV Cardiac Index MOD BP 1215.4 cm???/min???m??? LV Diastolic Volume MOD 4C 75.7 cm??? LV Systolic Volume MOD 4C 31.1 cm??? LV Ejection Fraction MOD 4C 58.9 % LV Cardiac Index MOD 4C 1724.3 cm???/min???m??? LV Diastolic Length 4C 7.6 cm LV Systolic Length 4C 6.5 cm LV Diastolic Volume MOD 2C 34.1 cm??? LV Systolic Volume MOD 2C 21.2 cm??? LV Ejection Fraction MOD 2C 37.8 % LV Cardiac Index MOD 2C 498.4 cm???/min???m??? LV Diastolic Length 2C 6.0 cm LV Systolic Length 2C 6.6 cm DOPPLER TR Peak Velocity 279.7 cm/s TR Peak Gradient 31.3 mmHg Right Ventricular Systolic Press 36.3 mmHg FINDINGS Left Ventricle Normal LV size. Mild septal hypertrophy. Left ventricular ejection fraction is estimated at _50-55 %. Right Ventricle Normal right ventricular size. RVSP= 35mmhg. Right Atrium Normal right atrial size. Left Atrium Normal left atrial size. Mitral Valve Aortic Valve Tricuspid Valve Pulmonic Valve Pericardium Aorta CONCLUSIONS Limited Echo Normal LV size and systolic function. LVEF estimated at 55% No obvious regional wall motion abnormality No evidence of mitral or aortic regurgitation by color Doppler Previewed by: Dr Farzad De La Rosa (Electronically Signed) Final Date: 19 September 2022 17:22
== END 2022-09-19 18:51 | disposition home or self-care (01) ==
LOC: EC 20:33 → INTOOBSV 21:34 → 3SCARD 21:34 → UNDODISIN 09-19 18:51
PROVIDERS: ADMIT Hospitalist; ATTEND Hospitalist
DX: I25.110 Atherosclerotic heart disease of native coronary artery with unstable angina pectoris (principal); I10 Essential (primary) hypertension; E78.5 Hyperlipidemia, unspecified; K21.9 Gastro-esophageal reflux disease without esophagitis; G47.30 Sleep apnea, unspecified; F32.A Depression, unspecified; J45.909 Unspecified asthma, uncomplicated; R73.03 Prediabetes; I25.2 Old myocardial infarction; E66.9 Obesity, unspecified; F17.200 Nicotine dependence, unspecified, uncomplicated; Z68.35 Body mass index [BMI] 35.0-35.9, adult; Z98.84 Bariatric surgery status; Z79.02 Long term (current) use of antithrombotics/antiplatelets; Z79.899 Other long term (current) drug therapy; Z91.040 Latex allergy status
CPT/HCPCS: 96376; 96366 ×2; 96368; 96365; 99285; 93005; 93308; 85379; 80061; 80053; 84484 ×2; 85025; 85610; 85730 ×2; 71275; G0378 ×3; J1644 ×2; Q9967; J2305